=== PATIENT | female | born 1940 | race Caucasian/White ===

== ENCOUNTER → 2016-05-08 | Outpatient (CLI) | payer MEDICARE ==
[~2016-05-08] MED LIST: AMLO2.5T PO; DOCU-27 PO; HYDR500C PO; LEVE250T30 PO; MECL12.5 PO; MULT1TAB52 PO; TIZA4TAB PO
--- NOTE | 2016-05-08 14:24 | KCIC ---
PROCEDURE Two-view chest HISTORY Pneumonia COMPARISON April 24, 2016 FINDINGS Two views of the chest are submitted. There is no dependent pleural fluid or pneumothorax. Heart size is within normal limits. There is atherosclerotic calcification near aortic arch. There is no lobar consolidation. There is mild linear opacity at the right lung base more likely due to mild atelectasis or fibrotic change, similar in appearance. IMPRESSION No acute abnormality is identified by radiographs. Electronically signed by: Bud Joseph MD (May 08, 2016 14:23:35)
== END | disposition home or self-care (01) ==
LOC: KCIC 12:05
PROVIDERS: ATTEND Family Medicine
DX: J18.9 Pneumonia, unspecified organism (principal)
CPT/HCPCS: 71020

== ENCOUNTER → 2016-07-10 | Outpatient (CLI) | payer MEDICARE ==
--- NOTE | 2016-07-10 10:21 | KCIC ---
PROCEDURE Lumbar spine radiographs, right hip radiographs. HISTORY Right hip pain for 2-3 months, chronic low back pain COMPARISON There are no previous similar exams available. FINDINGS Lumbar spine: 7 views of the lumbar spine are submitted. There is moderate to severe S-shaped scoliosis of the lumbar spine. Pars interarticularis are poorly evaluated due to scoliosis. There is advanced degenerative disc disease L1-2, L4-5, and L5-S1 at which there is vacuum disc disease. There is multilevel lumbar spondylosis and facet degenerative change. Lumbar vertebral body stature is overall preserved. There is minimal posterior subluxation L3 relative to L4 very slightly reduced with flexion. Very minimal posterior subluxation L2 relative to L3 reduces with flexion. There is mild right lateral subluxation L1 relative to L2 and to a greater degree of L2 relative to L3. There is mild left lateral subluxation of L4 relative to L5. There is atherosclerotic calcification of the abdominal aorta. Right hip radiographs: Two views of the right hip are submitted. No acute fracture or dislocation is identified. Right hip joint space is minimally narrowed. Right femoral head morphology is maintained. IMPRESSION 1. There is moderate to severe S-shaped scoliosis of the lumbar spine. There is multilevel lumbar degenerative disc disease and spondylosis greatest L1-2, L4-5, and L5-S1. There is multilevel abnormal alignment as stated. There is multilevel lumbar facet degenerative change. 2. No acute abnormality is identified of the right hip. Electronically signed by: Bud Joseph MD (Jul 10, 2016 10:20:11)
== END | disposition home or self-care (01) ==
LOC: KCIC 09:16
PROVIDERS: ATTEND Family Medicine
DX: M47.896 Other spondylosis, lumbar region (principal); M54.5 Low back pain; M41.86 Other forms of scoliosis, lumbar region; M51.37 Other intervertebral disc degeneration, lumbosacral region; M43.5X6 Other recurrent vertebral dislocation, lumbar region; I70.0 Atherosclerosis of aorta
CPT/HCPCS: 72114; 73502

== ENCOUNTER → 2016-10-13 | Outpatient (CLI) | payer MEDICARE ==
[~2016-10-13] MED LIST changes: +DOCU-109 PO; -DOCU-27 PO
--- NOTE | 2016-10-13 14:33 | KCIC ---
MRI Lumbar Spine without contrast History: Low back pain, right radiculopathy, right leg weakness, symptoms for about one year, history of scoliosis Technique: Multiplanar, multi sequential noncontrast MR imaging was performed of the lumbar spine. Contrast: None Comparison: None Findings: There is moderate to severe levoscoliosis centered about L4. There is right lateral subluxation L2 relative to L3 and left lateral subluxation of L4 relative to L5. Lumbar vertebral body stature is maintained. There is mild grade 1 anterior spondylolisthesis at L4-5 eccentric to the right. There is minimal posterior subluxation L2 relative to L3 more eccentric to the right. Conus terminates at T12. There is multilevel variable moderate to severe degenerative disc disease throughout the lumbar spine, greatest at site of anticipated increased axial weightbearing due to scoliosis. There are T2 hyperintense foci of the bilateral renal pelves, also in the parenchyma, overall compatible with cysts. T11-12: This level was not included on the axial images. There is a posterior protrusion, likely mild spinal stenosis. T12-L1: There is broad posterior bulge greater in the left lateral recess. There is mild facet degenerative change. There is mild narrowing of the far left lateral recess. There is mild narrowing of the left neural foramen, right neural foramen adequate. L1-L2: There is posterior disc osteophyte complex and superimposed broad bulge. There is mild buckling of the ligamentum flavum and facet hypertrophic change. There is moderate narrowing of the left lateral recess, mild narrowing of the right lateral recess. There is moderate to severe narrowing of the left neural foramen by disc osteophyte complex, contact of the extraforaminal left L1 nerve root by disc osteophyte complex. There is mild narrowing of the right neural foramen. L2-L3: There is disc osteophyte complex and superimposed broad posterior protrusion. There is fairly severe right and moderate left facet degenerative change. There is [id number] buckling of the ligamentum flavum. There is moderate to severe narrowing of the lateral recesses bilaterally, also deformity of the central canal due to scoliosis and right facet hypertrophic change with overall mild narrowing. There is moderate narrowing greater distally of the left neural foramen, contact of the undersurface of the exiting left L2 nerve root by disc osteophyte complex and protrusion, also likely contacted laterally by uncovering of the left lateral aspect of the disc due to right lateral subluxation of L2. There is moderate to severe narrowing of the right neural foramen. L3-L4: There is moderate to severe facet degenerative change greater on the right. There is mild/moderate buckling of the ligamentum flavum. There is moderate to severe right and moderate left lateral recess stenosis, mild to moderate narrowing of the central canal. There is [id number] left and moderate to severe right neural foramina compromise. L4-L5: There is severe facet hypertrophic change greater on the right. There is mild buckling of the ligamentum flavum. There is minimal disc osteophyte complex, partial uncovering of the posterior aspect of the disc on the right due to anterior spondylolisthesis with superimposed disc osteophyte complex and bulge. Combination of findings results in severe spinal stenosis, effacement of subarachnoid space. There is lateral recess stenosis bilaterally with impingement of the descending L5 nerve roots somewhat greater on the right. There is fairly severe right and moderate left neural foramina compromise. L5-S1: There is moderate facet hypertrophic change greater on the left. There is mild buckling of the ligamentum flavum greater on the left. There is shallow protrusion greater in the left lateral recess. There is moderate left lateral recess stenosis, impingement descending left S1 nerve root. There is fairly severe narrowing of the left neural foramen primarily from facet although also disc osteophyte complex, minimal narrowing on the right. Impression: 1. There is severe spinal stenosis at L4-5, lateral recess stenosis bilaterally with impingement of the descending L5 nerve roots somewhat greater on the right. There is also right greater than left lateral recess stenosis at L3-4 and bilaterally at L2-3 and to a somewhat lesser degree on the left at L5-S1 and L1-2. 2. There is moderate to severe lumbar levoscoliosis. There is abnormal alignment as stated. There is multilevel facet degenerative change. 3. There is multilevel lumbar neural foramina compromise including more significant narrowing on the left at L5-S1 and L1-2, right greater than left at L4-5 and L2-3, and on the right at L3-4. 4. There is multilevel variable moderate to severe degenerative disc disease throughout the lumbar spine. 5. There are likely cysts of the bilateral kidneys including of the renal pelves. Electronically signed by: Denys Joseph MD (10/13/2016 2:29 PM)
== END | disposition home or self-care (01) ==
LOC: KCIC MRI 12:56
PROVIDERS: ATTEND Family Medicine
DX: M51.36 Other intervertebral disc degeneration, lumbar region (principal); M48.06 Spinal stenosis, lumbar region; M25.78 Osteophyte, vertebrae; M43.16 Spondylolisthesis, lumbar region; M54.5 Low back pain; M54.16 Radiculopathy, lumbar region; R53.1 Weakness
CPT/HCPCS: 72148

== ENCOUNTER → 2016-11-09 | Outpatient (CLI) | payer MEDICARE ==
[~2016-11-09] MED LIST changes: +ASCO10002 PO; +CA C1TAB36 PO; +CHOL10003 PO; +FLAX10003 PO; +GINK120C PO; +GLUC100018 PO; +IOHEXOL 180 MG/ML 10 ML VIAL. ONE; +NAPR500T3 PO; +TRAM50TA PO; +VITA1CAP PO; +VITA400C6 PO; +methylPREDNISolone ACETATE 40 MG/ML VIAL. ONE; +methylPREDNISolone ACETATE 80 MG/ML VIAL. ONE
== END | disposition home or self-care (01) ==
LOC: PNCL 08:09
PROVIDERS: ATTEND Anesthesiology
DX: M51.16 Intervertebral disc disorders with radiculopathy, lumbar region (principal); M48.01 Spinal stenosis, occipito-atlanto-axial region; Z86.69 Personal history of other diseases of the nervous system and sense organs
CPT/HCPCS: 62323; J1030; J1040

== ENCOUNTER → 2016-12-08 | Outpatient (CLI) | payer MEDICARE ==
--- NOTE | 2016-12-08 12:58 | PAIN ---
DATE OF SERVICE: 12/08/2016 PROGRESS NOTE FOR PAIN CLINIC DIAGNOSES: Lumbar radiculopathy with lumbar degenerative disk disease and lumbar spinal stenosis. HISTORY OF PRESENT ILLNESS: The patient is a 76-year-old female who returns for followup status post lumbar epidural steroid injection x 1. The patient reports about 95% improvement until about a week ago, when the pain returned in her low back and slightly more on the right side than the left in the lower extremities, mostly in the posterior gluteus, posterior thigh. The patient reports that she had been on a trip to [place] before that and did very well right after the last shot, was increasing her activity with greater ease and comfort, was performing all of her activities and recreation without difficulty and with only minimal pain. The patient reports pain is returning now, at worse it is 6 on a scale of 10, at least it is of 2 and averages about at 3 on a scale of 10. The patient reports it is aching and tight with some shooting pain in the right lower extremity as noted. The patient reports no new motor or sensory deficits, no new bowel or bladder incontinence. The patient reports it does not awaken her from sleep at night. She feels much better with lying down or sitting down. It only bothers her when she is on her feet for more than about 30 minutes. PHYSICAL EXAMINATION: VITAL SIGNS: Today, the patient's blood pressure is 133/64, pulse 84, respirations 18, temperature 98.1 degrees Fahrenheit. Height is 5 feet 5 inches, weighs 143 pounds. GENERAL: The patient is awake, alert, oriented, appropriate, very pleasant demeanor. HEENT: Head shows normocephalic, atraumatic. Extraocular movements are intact and symmetrical. Oral cavity, mucous membranes are moist and pink. Dentition is intact. NECK: Shows anterior throat supple without palpable lymphadenopathy noted. Swallow reflex is symmetrical. CHEST: Shows normal on inspection. Breath sounds are clear to auscultation bilaterally. HEART: Shows S1 and S2 clear. ABDOMEN: Soft, nontender, nondistended. No palpable organomegaly is noted. BACK: Shows spine grossly midline. Normal appearing thoracic kyphosis and lumbar lordotic curvature and lumbar paraspinous musculature shows some moderate tenderness to palpation, but only diffusely bilaterally. The patient has good rotational motion both laterally as well as extension and flexion of lumbar spine without difficulty. No tenderness over the spinous processes, sacrum or sacroiliac regions. EXTREMITIES: Lower extremities showed deep tendon reflexes 1+ in the patellar and tendo calcaneus tendons are equal. Motor exam is approximately 5 on a scale of 5 with dorsiflexion, extension, quadriceps and hamstring flexion. Pulses are 2+ bilaterally with no edema. Options were discussed with the patient and the patient's old chart was reviewed as her current medication regimen updated. Current review of systems updated today as well. We will proceed with a second lumbar epidural steroid injection with fluoroscopic guidance. Risks were again discussed including, but not limited to bleeding, infection, possibility of epidural hematoma, subsequent neurologic compromise, dural puncture, headaches, spinal cord and/or nerve damage, side effects of steroid medication and poor results regarding pain control. The patient understands and wishes to proceed. The patient will return to the clinic in approximately 2 weeks for followup, was counseled on return appointment, activity level and side effects to be aware of. DIAGNOSES: Lumbar radiculopathy with lumbar spinal stenosis and lumbar degenerative disk disease. PROCEDURES: Lumbar epidural steroid injection in translaminar approach at the L5-S1 level using C-arm fluoroscopic guidance under sterile prep and drape, using local anesthetic. MEDICATIONS INJECTED: A total of 120 mg Depo-Medrol plus 10 mL preservative-free normal saline and 2 mL of Isovue for contrast. CONDITION AT DISCHARGE: Stable. The patient tolerated procedure well, had no complications. ISAAC MACIAS MD DR: MERY/estefani JOB#: [id number] / [id number]
== END | disposition home or self-care (01) ==
LOC: PNCL 08:51
PROVIDERS: ATTEND Anesthesiology
DX: M51.16 Intervertebral disc disorders with radiculopathy, lumbar region (principal); M48.06 Spinal stenosis, lumbar region; Z86.69 Personal history of other diseases of the nervous system and sense organs
CPT/HCPCS: 62323; J1030; J1040

== ENCOUNTER → 2017-02-02 | Outpatient (CLI) | payer MEDICARE ==
[~2017-02-02] MED LIST changes: +ASPI-482 PO; +NAPR220C4 PO; -NAPR500T3 PO; +NAPR500T4 PO
--- NOTE | 2017-02-02 10:46 | PAIN ---
DATE OF SERVICE: 02/02/2017 DIAGNOSES: Lumbar radiculopathy with lumbar degenerative disk disease, lumbar spinal stenosis. HISTORY OF PRESENT ILLNESS: The patient is a 76-year-old female who returns for followup status post lumbar epidural steroid injections x 2, last seen on 12/08/2016, the patient did very well about 90% improvement after the last injection. The patient reports the pain is returning now over the past few weeks about 3-4 weeks, increase in the low back and right lower extremity, mostly in the posterior lateral thigh on the right into the posterior lower leg. The patient reports it as shooting, cramping, stabbing, worse with standing, walking, changing positions, better at night, but awakens her from sleep occasionally. She repositions or takes a sleeping pill, which helps as well. The patient reports no new motor or sensory deficits, no significant left-sided symptoms, reports no other complaints. PHYSICAL EXAMINATION: VITAL SIGNS: The patient's blood pressure 129/68, pulse 85, respirations 16, temperature 98.0 degrees Fahrenheit. Height is 5 feet 5 inches and weight is 149 pounds. GENERAL: The patient is awake, alert, oriented, appropriate, very pleasant demeanor. HEENT: Head shows normocephalic, atraumatic. Extraocular movements are intact, symmetrical. Oral cavity: Mucous membranes moist and pink. Dentition is intact. NECK: Shows anterior throat supple without palpable lymphadenopathy noted. Swallow reflex is symmetrical. CHEST: Shows normal with inspection. Breath sounds clear to auscultation bilaterally. HEART: Shows S1 and S2 clear. ABDOMEN: Soft, nontender, nondistended. No palpable organomegaly is noted. No rebound or guarding demonstrated. BACK: Shows spine grossly midline. Lumbar paraspinous musculature shows some moderate tenderness with palpation diffusely throughout the upper, middle and lower distribution bilaterally, but without asymmetry. The patient shows no tenderness over the sacrum or sacroiliac regions. EXTREMITIES: Lower extremities showed deep tendon reflexes at 1+ in the patellar and tendo calcaneus tendons are equal. Motor exam is strong with 5/5 dorsiflexion, extension, quadriceps and hamstring flexion and equal. Peripheral pulses are 1+ posterior tibial. No peripheral edema is noted. Options were discussed with the patient. The patient's old chart was reviewed as her current medication regimen updated. Current review of systems updated today as well. We will proceed with the third in the series of lumbar epidural steroid injection with fluoroscopic guidance. Risks were again discussed including, but not limited to bleeding, infection, possibility of epidural hematoma, subsequent neurologic compromise, dural puncture, headaches, spinal cord and/or nerve damage, side effects of steroid medication and poor results regarding pain control. The patient understands and wishes to proceed. The patient will return to clinic in approximately 2 weeks for followup, was counseled on return appointment, activity level and side effects to be aware of. DIAGNOSES: Lumbar radiculopathy with lumbar degenerative disk disease, lumbar spinal stenosis. PROCEDURE: Lumbar epidural steroid injection in translaminar approach L5-S1 level using C-arm fluoroscopic guidance under sterile prep and drape using local anesthetic. Medications injected total of 120 mg Depo-Medrol plus 10 mL preservative-free normal saline and 2 mL of Isovue for contrast. CONDITION AT DISCHARGE: Stable. The patient tolerated procedure well, had no complications. ISAAC MACIAS MD DR: MERY/estefani JOB#: [id number] / [id number]
== END | disposition home or self-care (01) ==
LOC: PNCL 08:43
PROVIDERS: ATTEND Anesthesiology
DX: M51.16 Intervertebral disc disorders with radiculopathy, lumbar region (principal); Z86.69 Personal history of other diseases of the nervous system and sense organs
CPT/HCPCS: 62323; J1030; J1040

== ENCOUNTER → 2017-05-04 | Outpatient (CLI) | payer MEDICARE ==
[~2017-05-04] MED LIST changes: -AMLO2.5T PO; -ASCO10002 PO; -ASPI-482 PO; -CA C1TAB36 PO; -CHOL10003 PO; -DOCU-109 PO; -FLAX10003 PO; -GINK120C PO; -GLUC100018 PO; -HYDR500C PO; +IOHEXOL 180 MG/ML 10 ML VIAL.; -IOHEXOL 180 MG/ML 10 ML VIAL. ONE; -LEVE250T30 PO; -MECL12.5 PO; -MULT1TAB52 PO; -NAPR220C4 PO; -NAPR500T4 PO; -TIZA4TAB PO; -TRAM50TA PO; -VITA1CAP PO; -VITA400C6 PO; +methylPREDNISolone ACETATE 40 MG/ML VIAL.; -methylPREDNISolone ACETATE 40 MG/ML VIAL. ONE; +methylPREDNISolone ACETATE 80 MG/ML VIAL.; -methylPREDNISolone ACETATE 80 MG/ML VIAL. ONE
== END ==
LOC: PNCL 08:01
DX: M51.36 Other intervertebral disc degeneration, lumbar region (principal); M48.061 Spinal stenosis, lumbar region without neurogenic claudication; Z98.890 Other specified postprocedural states; Z79.82 Long term (current) use of aspirin; Z79.899 Other long term (current) drug therapy
CPT/HCPCS: 62323; J1030; J1040

== ENCOUNTER 2017-06-01 17:03 | Emergency (ER) | payer MEDICARE ==
[2017-06-01 17:49] LABS: BILIRUBIN,URINE NEGATIVE (NEG); CLARITY,URINE CLEAR; COLOR,URINE YELLOW; GLUCOSE,URINE NEGATIVE (NEG); NITRITE,URINE NEGATIVE (NEG); PH,URINE 6.5; PROTEIN,URINE 100 mg/dL (NEG-TRACE); UROBILINOGEN,URINE 0.2 mg/dL (0.2 mg/dL)
[2017-06-01] MEDS: ONDANSETRON PF 4 MG/2 ML VIAL. IV ×2 (17:49)
[2017-06-01] MEDS: IV NORMAL SALINE 1000ML BAG 1,000 ML IV ×2 (17:50)
[2017-06-01 17:56] LABS: ADD MAN DIFF? NO
[2017-06-01 17:59] LABS: BASO % 0 % (0-3); EOS % 0 % (0-3); HEMATOCRIT 41.4 % (36.0-47.0); HEMOGLOBIN 14.3 g/dL (12.0-15.5); LYMPH # 1.3 x10^3/uL (1.0-4.8); LYMPH % 23 % (24-48); MEAN CORPUSCULAR HEMOGLOBIN 34 pg (25-35); MEAN CORPUSCULAR HGB CONC 35 g/dL (31-37); MEAN CORPUSCULAR VOLUME 100 fL (79-100); MONO # 0.2 x10^3/uL (0.0-1.1); MONO % 4 % (0-9); NEUT % 73 % (31-73); PLATELET COUNT 171 x10^3/uL (140-400); RED BLOOD COUNT 4.16 x10^6/uL (3.50-5.40); RED CELL DISTRIBUTION WIDTH 13.6 % (11.5-14.5); WHITE BLOOD COUNT 5.5 x10^3/uL (4.0-11.0)
[2017-06-01 18:07] LABS: BACTERIA,URINE FEW /HPF (0-FEW); RBC,URINE RARE /HPF (0-2); SQUAMOUS EPITHELIAL CELL,UR MOD /LPF; WBC,URINE OCC /HPF (0-4)
[2017-06-01 18:12] LABS: ANION GAP 13 (6-14); BLOOD UREA NITROGEN 20 mg/dL (7-20); BUN/CREATININE RATIO 33 (6-20); CALCIUM 9.4 mg/dL (8.5-10.1); CARBON DIOXIDE 25 mmol/L (21-32); CHLORIDE 100 mmol/L (98-107); CREATININE 0.6 mg/dL (0.6-1.0); GFR 97.2; GLUCOSE 196 mg/dL (70-99); POTASSIUM 4.4 mmol/L (3.5-5.1); SODIUM 138 mmol/L (136-145)
[2017-06-01 18:19] LABS: ALBUMIN/GLOBULIN RATIO 1.6 (1.0-1.7); ALK PHOS 81 U/L (46-116); ALT (SGPT) 20 U/L (14-59); AST (SGOT) 20 U/L (15-37); LIPASE 75 U/L (73-393); TOTAL PROTEIN 6.5 g/dL (6.4-8.2)
[2017-06-01] MEDS: IOHEXOL 300 MG/ML 100ML VIAL. IV ×2 (18:22)
[2017-06-01] MEDS ORDERED: CONTRAST GIVEN MC ×2 (18:30)
[2017-06-01] MEDS ORDERED: IV NORMAL SALINE 1000ML BAG 1,000 ML IV ×2 (19:15)
== END 2017-06-01 19:45 | disposition home or self-care (01) ==
LOC: ER 17:03
DX: K57.30 Diverticulosis of large intestine without perforation or abscess without bleeding (principal); K80.80 Other cholelithiasis without obstruction; K44.9 Diaphragmatic hernia without obstruction or gangrene; E86.0 Dehydration; B34.9 Viral infection, unspecified; R16.0 Hepatomegaly, not elsewhere classified; R19.00 Intra-abdominal and pelvic swelling, mass and lump, unspecified site; Z90.710 Acquired absence of both cervix and uterus; Z90.49 Acquired absence of other specified parts of digestive tract; Z98.890 Other specified postprocedural states
CPT/HCPCS: 36415; 74177; 80053; 81001; 83690; 85025; 93005; 96361; 96374; 99285-25; J2405; J7030; Q9967

== ENCOUNTER → 2017-07-27 | Outpatient (CLI) | payer MEDICARE | END | disposition home or self-care (01) | LOC: PNCL 08:20 | DX: M51.16 Intervertebral disc disorders with radiculopathy, lumbar region (principal); M48.061 Spinal stenosis, lumbar region without neurogenic claudication; I10 Essential (primary) hypertension | CPT/HCPCS: 62323; J1030; J1040; Q9965 ==

== ENCOUNTER → 2017-10-19 | Outpatient (CLI) | payer MEDICARE ==
[~2017-10-19] MED LIST changes: +LIDOCAINE 1% PF 2 ML VIAL.
== END ==
LOC: PNCL 11:27
DX: M51.16 Intervertebral disc disorders with radiculopathy, lumbar region (principal); M48.061 Spinal stenosis, lumbar region without neurogenic claudication; I10 Essential (primary) hypertension; Z79.82 Long term (current) use of aspirin; Z98.890 Other specified postprocedural states
CPT/HCPCS: 62323; J1030; J1040; Q9965

== ENCOUNTER → 2018-01-10 | Outpatient (CLI) | payer MEDICARE ==
[2017-06-01 18:44] VITALS: BP 126/64
[~2018-01-10] MED LIST changes: +AMLO2.5T3 PO; +ASCO10002 PO; +ASPI-482 PO; +CA C1TAB36 PO; +CHOL10003 PO; +DOCU-109 PO; +FLAX10003 PO; +GINK120C PO; +GLUC100018 PO; +HYDR500C PO; -IOHEXOL 180 MG/ML 10 ML VIAL.; +IOHEXOL 180 MG/ML 10 ML VIAL. ONE; +LEVE250T30 PO; -LIDOCAINE 1% PF 2 ML VIAL.; +LIDOCAINE 2% PF 2ML VIAL. ONE; +MECL12.5 PO; +MULT1TAB52 PO; +NAPR-514 PO; +NAPR220C4 PO; +ONDA4TAB10 SL; +TIZA4TAB PO; +TRAM50TA PO; +VITA1CAP PO; +VITA400C6 PO; -methylPREDNISolone ACETATE 40 MG/ML VIAL.; +methylPREDNISolone ACETATE 40 MG/ML VIAL. ONE; -methylPREDNISolone ACETATE 80 MG/ML VIAL.; +methylPREDNISolone ACETATE 80 MG/ML VIAL. ONE
--- NOTE | 2018-01-10 10:08 | PAIN ---
DATE OF SERVICE: 01/10/2018 PROGRESS NOTE FOR PAIN CLINIC DIAGNOSES: Lumbar radiculopathy with lumbar degenerative disk disease and lumbar spinal stenosis. HISTORY OF PRESENT ILLNESS: The patient is a 77-year-old female who returns for followup status post lumbar epidural steroid injections x 2, last seen on 10/19/2017. The patient did very well, about 80% improvement for about 2 months after the injection. The patient reports she has been having some pain increased now over the past few weeks in the low back and mainly in the right lower extremity, posterior gluteus, posterior thigh, posterior calf, some in the anterior aspect as well in the hip as well as across the low back into the left leg as well posteriorly. The patient reports it is stabbing, aching, sharp, sometimes dull and radiating. The patient reports it is a 9-10 scale of 10 at its worst, 7-8 on average and 4 at its least and is a 7 today. The patient reports it is worse with walking, standing and changing in positions. She started a new physical therapy program, which she feels is helping thus far. The patient reports no new motor or sensory deficits and no new bowel or bladder incontinence. It awakens her from sleep occasionally but not every night. PHYSICAL EXAMINATION: VITAL SIGNS: The patient's blood pressure is 136/66, pulse 67, respirations 18, temperature 98.0 degrees Fahrenheit and weight is 144 pounds. GENERAL: The patient is awake, alert, oriented, appropriate and very pleasant demeanor. HEENT: Head shows normocephalic and atraumatic. Extraocular movements are intact and symmetrical. Oral cavity, mucous membranes are moist and pink. Dentition is intact. NECK: Shows anterior throat supple without palpable lymphadenopathy noted. Swallow reflex symmetrical. CHEST: Shows normal on inspection. Breath sounds clear to auscultation bilaterally. HEART: Shows S1 and S2 clear. No murmurs auscultated. ABDOMEN: Soft, nontender and nondistended. No palpable organomegaly is noted. No rebound or guarding demonstrated. BACK: Shows spine grossly in the midline. Normal appearing thoracic kyphosis and lumbar lordotic curvature is slightly flattened. Lumbar paraspinous muscles are symmetrical on inspection, on palpation shows some mild tenderness but only diffusely in the low lumbar distribution bilaterally without radiation. EXTREMITIES: The patient's lower extremities show deep tendon reflexes at 1+ in the patellar and tendo-calcaneus tendons are equal. Motor exam is strong with 5/5 dorsiflexion and extension. Peripheral pulses are 1+ posterior tibia. No peripheral edema is noted bilaterally. Options were discussed with the patient. The patient's old chart was reviewed as well as her current medication regimen updated. Current review of systems updated today as well. We will proceed with a third in the series of lumbar epidural steroid injection today with fluoroscopic guidance. Risks were again discussed including, but not limited to bleeding, infection, possibility of epidural hematoma, subsequent neurologic compromise, dural puncture, headaches, spinal cord and/or nerve damage, side effects of steroid medication and poor results regarding pain control. The patient understands and wished to proceed. The patient will return to the clinic in approximately 2 weeks for followup, was counseled as to return appointment, activity level and side effects to be aware of. DIAGNOSES: Lumbar radiculopathy with lumbar degenerative disk disease and lumbar spinal stenosis. PROCEDURE: Lumbar epidural steroid injection, translaminar approach at the L5-S1 level using C-arm fluoroscopic guidance under sterile prep and drape using local anesthetic. MEDICATION INJECTED: A total of 120 mg Depo-Medrol plus 10 mL of preservative-free normal saline and 2 mL of Isovue for contrast. CONDITION AT DISCHARGE: Stable. The patient tolerated the procedure well and had no complications. ISAAC MACIAS MD DR: MERY/estefani JOB#: [id number] / [id number]
== END | disposition home or self-care (01) ==
LOC: PNCL 08:00
PROVIDERS: ATTEND Anesthesiology
DX: M51.16 Intervertebral disc disorders with radiculopathy, lumbar region (principal); M48.061 Spinal stenosis, lumbar region without neurogenic claudication
CPT/HCPCS: 62323; J1030; J1040; J2001; Q9965

== ENCOUNTER → 2018-03-24 | Outpatient (CLI) | payer MEDICARE ==
[2017-06-01 18:44] VITALS: BP 126/64
[~2018-03-24] MED LIST changes: -LIDOCAINE 2% PF 2ML VIAL. ONE
--- NOTE | 2018-03-24 11:47 | PAIN ---
DATE OF SERVICE: 03/24/2018 DIAGNOSES: Lumbar radiculopathy with lumbar degenerative disk disease and lumbar spinal stenosis. HISTORY OF PRESENT ILLNESS: The patient is a 78-year-old female who returns for followup status post lumbar epidural steroid injections, last seen on 01/10. The patient did very well with about 95% improvement after last injection. The patient reports the pain is returning now in the low back and right lower extremity. She has recently been through a physical therapy program, which she reports was not very helpful for her pain in her back and her leg. She would like to have this looked at again. The patient reports it is in the low back, right lower extremity, posterior gluteus, posterior thigh, posterior calf, stabbing, aching, severe, becoming more a dull and tight across the back, rated a 10 on a scale of 10 at its worst, 9 on average, 6 at its least and is an 8 today. The patient reports it wakes her from sleep occasionally, but not every night, most nights she sleeps fairly well. She feels better with sitting down or lying down, worse with standing and walking. She was shoveling some snow a few days ago, which exacerbated the pain as well. The patient reports no new motor or sensory deficits, no new bowel or bladder incontinence or other complaints. PHYSICAL EXAMINATION: VITAL SIGNS: The patient's blood pressure 141/69, pulse 74, respirations 18, temperature 98.2 degrees Fahrenheit, height is 5 feet 5 inches, weight 145 pounds. GENERAL: The patient is awake, alert, oriented, appropriate, very pleasant demeanor. HEENT: Head is normocephalic, atraumatic. Extraocular movements are intact and symmetrical. Oral cavity: Mucous membranes moist and pink. Dentition is intact. NECK: Shows anterior throat supple without palpable lymphadenopathy noted. Swallow reflex symmetrical. CHEST: Shows normal with inspection. Breath sounds clear to auscultation bilaterally. HEART: Shows S1, S2 clear. No murmurs auscultated. ABDOMEN: Soft, nontender, nondistended. No palpable organomegaly is noted. No rebound or guarding demonstrated. BACK: Shows spine grossly in the midline. Slight exaggeration of thoracic kyphosis, some minor flattening of lumbar lordotic curvature with some rightward scoliosis noted. Lumbar paraspinous muscle shows moderately symmetrical with palpation shows moderate tenderness bilaterally diffusely, mostly in the low lumbar distribution without radiation. The patient has good rotational motion of lumbar spine, both laterally as well as extension and flexion without difficulty. EXTREMITIES: The patient's lower extremities show deep tendon reflexes 1+ in the patellar and tendo calcaneus tendons are equal. Motor exam is strong with 5/5 dorsiflexion, extension, quadriceps and hamstring flexion and intact. Peripheral pulses are 1+ posterior tibia. No peripheral edema is noted bilaterally. Options were discussed with the patient. The patient's old chart was reviewed as her current medication regimen updated. Current review of systems updated today as well. We will proceed with a lumbar epidural steroid injection today with fluoroscopic guidance. Risks were again discussed including, but not limited to bleeding, infection, possibility of epidural hematoma and subsequent neurological compromise, dural puncture, headaches, spinal cord and/or nerve damage, side effects of steroid medication and poor results regarding pain control. The patient understands and wished to proceed. The patient to return to clinic in approximately 2 weeks for followup, was counseled on return appointment, activity level and side effects to be aware of. DIAGNOSES: Lumbar radiculopathy with lumbar spinal stenosis, lumbar degenerative disk disease. PROCEDURE: Lumbar epidural steroid injection, translaminar approach at L5-S1 level using C-arm fluoroscopic guidance under sterile prep and drape using local anesthetic. MEDICATION INJECTED: A total of 120 mg Depo-Medrol, plus 10 mL of preservative-free normal saline and 2 mL of Isovue for contrast. CONDITION AT DISCHARGE: Stable. The patient tolerated the procedure well, had no complications. ISAAC MACIAS MD DR: MERY/estefani JOB#: [id number] / [id number]
== END | disposition home or self-care (01) ==
LOC: PNCL 07:44
PROVIDERS: ATTEND Anesthesiology
DX: M51.16 Intervertebral disc disorders with radiculopathy, lumbar region (principal); M48.061 Spinal stenosis, lumbar region without neurogenic claudication; Z79.899 Other long term (current) drug therapy; Z79.82 Long term (current) use of aspirin
CPT/HCPCS: 62323; J1030; J1040; Q9965

== ENCOUNTER → 2018-05-10 | Outpatient (CLI) | payer MEDICARE, OTHER ==
[2017-06-01 18:44] VITALS: BP 126/64
[~2018-05-10] MED LIST changes: -AMLO2.5T3 PO; +AMLO2.5T5 PO; -TIZA4TAB PO; +TIZA4TAB2 PO
--- NOTE | 2018-05-10 10:13 | PAIN ---
DATE OF SERVICE: 05/10/2018 PROGRESS NOTE FOR PAIN CLINIC DIAGNOSES: Lumbar radiculopathy with lumbar spinal stenosis and lumbar degenerative disk disease. HISTORY OF PRESENT ILLNESS: The patient is a 78-year-old female who returns for followup status post lumbar epidural steroid injection x 1 on 03/24/2018. The patient did very well, with about 70% improvement for about 5-6 weeks. The patient reports the pain is beginning to return now in the low back and right lower extremity, posterior gluteus, posterior thigh, posterior calf and lateral thigh and calf on the right. Only worse with walking and standing. The patient reports it is aching and dull. It is shooting and radiating, becoming more constant and more noticeable. The patient reports that it does not awaken her from sleep frequently, but some nights it will. The patient reports it is a 10 on a scale of 10 at its worst, 9 on average and a 5 at its least and is a 5 today. The patient reports it is worse with walking, standing, changing any positions or sitting for a prolonged period. The patient reports initially she was walking greater distances, doing activities at home with greater ease and comfort as well as traveling with greater ease. No new motor or sensory deficits. No bowel or bladder incontinence. PHYSICAL EXAMINATION: VITAL SIGNS: Today, the patient's blood pressure 133/78, pulse 85, respirations 18 and temperature is 97.6 degrees Fahrenheit. Height is 5 feet 5 inches, weighs 144 pounds. GENERAL: The patient is awake, alert, oriented, appropriate, very pleasant demeanor. HEENT EXAMINATION: Shows normocephalic, atraumatic. Extraocular movements are intact and symmetrical. Oral cavity, mucous membranes are moist and pink. Dentition is intact. NECK: Shows anterior throat supple, without palpable lymphadenopathy noted. Swallow reflex is symmetrical. CHEST: Shows normal on inspection. Breath sounds are clear to auscultation bilaterally. HEART: Shows S1, S2 clear. No murmurs auscultated. ABDOMEN: Soft, nontender and nondistended. No palpable organomegaly is noted. No rebound or guarding demonstrated. BACK: Shows spine grossly in the midline. Slight exaggeration of the thoracic kyphosis and minor flattening of the lumbar lordotic curvature. Lumbar paraspinous muscle shows symmetrical on inspection. On palpation, it shows some mild tenderness, but only diffusely in the low lumbar distribution, without radiation. EXTREMITIES: The patient's lower extremities show deep tendon reflexes at 1+ in the patella and tendo calcaneus tendons are equal. Motor exam is strong with 5/5 dorsiflexion, extension, quadriceps and hamstring flexion equal. Peripheral pulses are 1+ posterior tibia. No peripheral edema is noted bilaterally. Options were discussed with the patient. The patient's old chart was reviewed as was her current medication regimen updated. Current review of systems updated today as well. We will proceed with a second in the series of lumbar epidural steroid injection today with fluoroscopic guidance. Risks were again discussed including, but not limited to bleeding, infection, possibility of epidural hematoma, subsequent neurological compromise, dural puncture, headaches, spinal cord and/or nerve damage, side effects of steroid medication and poor results regarding pain control. The patient understands and wished to proceed. The patient will return to the clinic in approximately 2 weeks for followup. She was counseled to her return appointment, activity level and side effects to be aware of. DIAGNOSES: Lumbar radiculopathy with lumbar spinal stenosis and lumbar degenerative disk disease. PROCEDURE: Lumbar epidural steroid injection in translaminar approach at L5-S1 level using C-arm fluoroscopic guidance under sterile prep and drape using local anesthetic. MEDICATIONS INJECTED: A total of 120 mg Depo-Medrol plus 10 mL of preservative-free normal saline and 2 mL of Isovue for contrast. CONDITION AT DISCHARGE: Stable. The patient tolerated the procedure well, had no complications. ISAAC MACIAS MD DR: MERY/estefani JOB#: [id number] / [id number]
== END | disposition home or self-care (01) ==
LOC: PNCL 07:31
PROVIDERS: ATTEND Anesthesiology
DX: M51.16 Intervertebral disc disorders with radiculopathy, lumbar region (principal); M48.061 Spinal stenosis, lumbar region without neurogenic claudication
CPT/HCPCS: 62323; J1030; J1040; Q9965

== ENCOUNTER → 2018-08-04 | Outpatient (CLI) | payer MEDICARE, OTHER ==
[2017-06-01 18:44] VITALS: BP 126/64
[~2018-08-04] MED LIST changes: +TIZA4TAB PO; -TIZA4TAB2 PO
--- NOTE | 2018-08-05 01:42 | PAIN ---
DATE OF SERVICE: 08/04/2018 PROGRESS NOTE FOR PAIN CLINIC DIAGNOSES: Lumbar radiculopathy with lumbar spinal stenosis and lumbar degenerative disk disease. HISTORY OF PRESENT ILLNESS: The patient is a 78-year-old female who returns for followup status post lumbar epidural steroid injection x 2, last seen 05/10/2018. The patient reports she did very well with about 80% improvement. Pain is returning now in the low back and right lower extremity. The patient was initially walking greater distances, travelling with greater ease, working, doing home activities as well as travelling. The patient reports she is sleeping well and continues to sleep well at night. It does not awaken her from sleep frequently, but occasionally. The patient reports no new motor or sensory deficits. She reports the pain returning now over the past 2 weeks or so in the low back, right lower extremity, posterior gluteus, posterior thigh and posterior calf. Rates it at 9-10 on a scale of 10 at its worst, 5-6 on average and a 2 at its least and it is a 5 today. The patient reports no new motor or sensory deficits. No new bowel or bladder incontinence or other complaints. PHYSICAL EXAMINATION: VITAL SIGNS: The patient's blood pressure is 138/71, pulse 84, respirations 16 and temperature is 98.2 degrees Fahrenheit. Weight is 141 pounds. GENERAL: The patient is awake, alert, oriented, appropriate, very pleasant demeanor. The patient is accompanied by her . HEENT EXAMINATION: Shows normocephalic, atraumatic. Extraocular movements are intact and symmetrical. Oral cavity, mucous membranes are moist and pink. Dentition is intact. NECK: Shows anterior throat supple, without palpable lymphadenopathy noted. Swallow reflex is symmetrical. CHEST: Shows normal with inspection. Breath sounds are clear to auscultation bilaterally. HEART: Shows S1 and S2 clear. No murmurs auscultated. ABDOMEN: Soft, nontender and nondistended. No palpable organomegaly is noted. No rebound or guarding is demonstrated. BACK: Shows spine grossly in the midline. Normal-appearing thoracic kyphosis. Some minor flattening of the lumbar lordotic curvature. Lumbar paraspinous muscle shows symmetrical on inspection. On palpation, it shows some moderate tenderness, but only diffusely bilaterally, with good rotational motion maintained, greater than 10 degrees right and left as well as extension greater than 10 degrees and forward flexion of 45 degrees, without pain reported. EXTREMITIES: Lower extremities show deep tendon reflexes at 1+ in the patellar and tendo calcaneus tendons are equal. Motor exam is strong with 5/5 dorsiflexion and extension, quadriceps and hamstring flexion and symmetrical. Peripheral pulses are 1+ posterior tibia. No peripheral edema is noted bilaterally. Options were discussed with the patient. The patient's old chart was reviewed as was her current medications regimen updated. Current review of systems updated today as well. We will proceed with a third in the series of lumbar epidural steroid injection today with fluoroscopic guidance. Risks were again discussed including, but not limited to bleeding, infection, possibility of epidural hematoma, subsequent neurological compromise, dural puncture, headaches, spinal cord and/or nerve damage, side effects to steroid medication and poor results regarding pain control. The patient understands and wishes to proceed. The patient will return to the clinic in approximately 2 weeks for followup. She was counseled on her return appointment, activity level and side effects to be aware of. DIAGNOSES: Lumbar radiculopathy with lumbar spinal stenosis and lumbar degenerative disk disease. PROCEDURE: Lumbar epidural steroid injection in translaminar approach at L5-S1 level using C-arm fluoroscopic guidance under sterile prep and drape using local anesthetic. MEDICATIONS INJECTED: A total of 120 mg Depo-Medrol plus 10 mL of preservative-free normal saline and 2 mL of Isovue for contrast. CONDITION ON DISCHARGE: Stable. The patient tolerated the procedure well, had no complications. ISAAC MACIAS MD DR: MERY/estefani JOB#: [id number] / [id number]
== END | disposition home or self-care (01) ==
LOC: PNCL 10:37
PROVIDERS: ATTEND Anesthesiology
DX: M51.16 Intervertebral disc disorders with radiculopathy, lumbar region (principal); M48.061 Spinal stenosis, lumbar region without neurogenic claudication
CPT/HCPCS: 62323; J1030; J1040; Q9965

== ENCOUNTER → 2018-09-05 | Outpatient (CLI) | payer MEDICARE, OTHER ==
[2017-06-01 18:44] VITALS: BP 126/64
[~2018-09-05] MED LIST changes: +BUPIVACAINE MPF 0.25% 10 ML VIAL. ONE; -IOHEXOL 180 MG/ML 10 ML VIAL. ONE; -methylPREDNISolone ACETATE 80 MG/ML VIAL. ONE
--- NOTE | 2018-09-05 21:26 | PAIN ---
DATE OF SERVICE: 09/05/2018 PROGRESS NOTE FOR PAIN CLINIC DIAGNOSES: 1. Lumbar radiculopathy with lumbar degenerative disk disease and lumbar spinal stenosis. 2. Myofascial pain. HISTORY OF PRESENT ILLNESS: The patient is a 78-year-old female who returns for followup status post lumbar epidural steroid injection x 3 on 08/04/2018. The patient reports she did very well with this with about 80% improvement, but now, the pain is returning and is somewhat different now. The patient reports some significant spasticity and tightness in the low back with some radiation to the lower extremities, but mostly in the low back itself. The patient reports it is worse with walking, movement, change in positions, getting up from a seated position. It has been awakening her from sleep occasionally, but not every night, better with lying down, but worse with sitting or standing. The patient reports it is aching, sharp, burning, cramping and stabbing in the low back bilaterally, slightly worse on the right than the left. Rates the pain as a 9-10 on a scale of 10 on average, 10 at its worst, is a 6 at its least and is a 9 today. The patient reports no new motor or sensory deficits, no new bowel or bladder incontinence or other complaints. PHYSICAL EXAMINATION: VITAL SIGNS: The patient's blood pressure is 136/62, pulse 73, respirations 18, temperature 97.8 degrees Fahrenheit. Height is 5 feet 5 inches, weight is 139 pounds. GENERAL: The patient is awake, alert, oriented, appropriate, very pleasant demeanor. HEENT: Head shows normocephalic, atraumatic. Extraocular movements are intact, symmetrical. Oral cavity: Mucous membranes moist and pink. Dentition is intact. NECK: Shows anterior throat supple without palpable lymphadenopathy noted. Swallow reflex is symmetrical. CHEST: Shows normal with inspection. Breath sounds clear to auscultation bilaterally. HEART: Shows S1, S2 clear. No murmurs auscultated. ABDOMEN: Soft, nontender, nondistended. No palpable organomegaly is noted. No rebound or guarding demonstrated. BACK: Shows spine grossly in the midline. Normal appearing thoracic kyphosis and lumbar lordotic curvature. Lumbar paraspinous muscle shows symmetrical on inspection, with palpation shows some significant tenderness in the middle and lower distribution of paraspinous musculature, very firm rope-like musculature bilaterally in the inferior thoracic and the entire lumbar distribution with very firm rope-like muscles, again worse on the right than the left with some tenderness over the sacroiliac regions, but only mildly with palpation. The patient does show good rotational motion of lumbar spine, both laterally greater than 10 degrees right and left as well as extension greater than 10 degrees, forward flexion 45 degrees without exacerbation of pain. EXTREMITIES: The patient's lower extremities show deep tendon reflexes 1+ in the patellar and tendo calcaneus tendons. Motor exam is strong with 5/5 dorsiflexion, extension, quadriceps and hamstring flexion and symmetrical. Peripheral pulses are 1+ posterior tibia. No peripheral edema is noted bilaterally. Options were discussed with the patient. The patient's old chart was reviewed as her current medication regimen updated. Current review of systems updated today as well. We will proceed with trigger point injections of the bilateral lumbar and thoracic paraspinous musculature as identified. Risks were again discussed including, but not limited to, bleeding, infection, possibility of intravascular injection sequelae, spread of local anesthetic and numbness, side effects of steroid medication and poor results regarding pain control. The patient understands and wished to proceed. The patient will return to the clinic in approximately 2 weeks for followup, was counseled as to return appointment, activity level and side effects to be aware of. DIAGNOSIS: Myofascial pain. PROCEDURE: Trigger point injections, bilateral thoracic paraspinous musculature, bilateral lumbar paraspinous musculature under sterile prep and drape using local anesthetic. MEDICATION INJECTED: A total of 40 mg of Depo-Medrol plus total of 12 mL of 0.25% bupivacaine after negative aspiration at each injection site. CONDITION AT DISCHARGE: Stable. The patient tolerated the procedure well, had no complications. ISAAC MACIAS MD DR: MERY/estefani JOB#: [id number] / [id number]
== END | disposition home or self-care (01) ==
LOC: PNCL 08:15
PROVIDERS: ATTEND Anesthesiology
DX: M79.18 Myalgia, other site (principal); M51.16 Intervertebral disc disorders with radiculopathy, lumbar region; M48.061 Spinal stenosis, lumbar region without neurogenic claudication
CPT/HCPCS: 20553; J1030; J3490

== ENCOUNTER → 2018-10-25 | Outpatient (CLI) | payer MEDICARE, OTHER ==
[2017-06-01 18:44] VITALS: BP 126/64
[~2018-10-25] MED LIST changes: -BUPIVACAINE MPF 0.25% 10 ML VIAL. ONE; +IOHEXOL 180 MG/ML 10 ML VIAL. ONE; +methylPREDNISolone ACETATE 80 MG/ML VIAL. ONE
--- NOTE | 2018-10-25 12:25 | PAIN ---
DATE OF SERVICE: 10/25/2018 PREOPERATIVE DIAGNOSES: Lumbar radiculopathy with lumbar spinal stenosis, lumbar degenerative disk disease. POSTOPERATIVE DIAGNOSES: Lumbar radiculopathy with lumbar spinal stenosis, lumbar degenerative disk disease. HISTORY OF PRESENT ILLNESS: The patient is a 78-year-old female who returns for followup status post lumbar epidural steroid injection x 3 in the past, most recently 08/04/2018. The patient did very well with this with about 80% improvement. The patient reports pain is returning now in the low back. We had seen her on 09/05, did some trigger point injections, which helped a little, but not significantly. The patient reports the pain is in the low back, right lower extremity, now posterior gluteus, posterior thigh, posterior calf, radiating across the low back as well, worse with walking, standing, change in positions, describes it is burning and stabbing, aching and sharp and alternating. The patient reports it is a 10 on a scale of 10 at its worst, 7 to 8 on average, 5 at its least, and it is a 5 today. The patient reports no new motor or sensory deficits, better with sitting or lying down, does not awaken her from sleep at night, worse with walking and standing or bending. PHYSICAL EXAMINATION: VITAL SIGNS: The patient's blood pressure is 111/64, pulse 85, respirations 16, temperature 98.7 degrees Fahrenheit, height is 5 feet 5 inches, and weight is 139 pounds. GENERAL: The patient is awake, alert, oriented, appropriate, very pleasant demeanor. HEENT: Head shows normocephalic, atraumatic. Extraocular movements are intact and symmetrical. Oral cavity, mucous membranes are moist and pink. Dentition is intact. NECK: Shows anterior throat supple without palpable lymphadenopathy noted. Swallow reflex symmetrical. CHEST: Shows normal with inspection. Breath sounds are clear to auscultation bilaterally. HEART: Shows S1, S2 clear. No murmurs auscultated. ABDOMEN: Soft, nontender, nondistended. No palpable organomegaly is noted. No rebound or guarding demonstrated. BACK: Shows spine grossly in the midline. Normal appearing thoracic kyphosis, some mild flattening of lumbar lordotic curvature. Lumbar paraspinous muscle shows symmetrical on inspection. On palpation, some moderate tenderness diffusely in the low lumbar distribution, slightly more on the right than the left, but symmetrical, no evidence of atrophy, hypertrophy, no trigger points, no radiation with rotation. EXTREMITIES: Lower extremities showed deep tendon reflexes at 1+ in the patellar and tendo-calcaneus tendons are equal. Motor exam is strong with 5/5 dorsiflexion, extension, quadriceps and hamstring flexion. Peripheral pulses are 1+. No peripheral edema is noted bilaterally. Options were discussed with the patient. The patient's old chart was reviewed as well as her current medication regimen updated. Current review of systems updated today as well. We will proceed with a first in the series of lumbar epidural steroid injection today with fluoroscopic guidance. Risks were again discussed including, but not limited to bleeding, infection, possibility of epidural hematoma, subsequent neurologic compromise, dural puncture, headaches, spinal cord and/or nerve damage, side effects of steroid medication and poor results regarding pain control. The patient understands and wished to proceed. The patient will return to clinic in approximately 2 weeks for followup, was counseled on return appointment, activity level and side effects to be aware of. DIAGNOSES: Lumbar radiculopathy with lumbar spinal stenosis, lumbar degenerative disk disease. PROCEDURE: Lumbar epidural steroid injection, translaminar approach L5-S1 level using C-arm fluoroscopic guidance under sterile prep and drape using local anesthetic. MEDICATION INJECTED: A total of 120 mg Depo-Medrol plus 10 mL of preservative-free normal saline and 2 mL of Isovue for contrast. CONDITION AT DISCHARGE: Stable. The patient tolerated the procedure well, had no complications. ISAAC MACIAS MD DR: MERY/estefani JOB#: [id number] / [id number]
== END ==
LOC: PNCL 12:09
PROVIDERS: ATTEND Anesthesiology
DX: M51.16 Intervertebral disc disorders with radiculopathy, lumbar region (principal); M48.061 Spinal stenosis, lumbar region without neurogenic claudication
CPT/HCPCS: 62323; J1030; J1040; Q9965

== ENCOUNTER → 2018-11-16 | Outpatient (CLI) | payer MEDICARE, OTHER ==
[2017-06-01 18:44] VITALS: BP 126/64
[~2018-11-16] MED LIST changes: -IOHEXOL 180 MG/ML 10 ML VIAL. ONE; -TIZA4TAB PO; +TIZA4TAB2 PO; -methylPREDNISolone ACETATE 40 MG/ML VIAL. ONE; -methylPREDNISolone ACETATE 80 MG/ML VIAL. ONE
--- NOTE | 2018-11-16 16:35 | KCIC ---
KNEE RIGHT 3V, HIP RIGHT 2V WITH PELVIS History: Polyarthritis. Right hip and knee pain for 1.5 months.. 3 view right knee Bone demineralization. No evidence of acute fracture. No aggressive bone destruction. Mild density within the medial and lateral menisci compatible with chondrocalcinosis. Mild degenerative changes with mild narrowing of the medial joint compartment. Small marginal osteophytes about the knee. IMPRESSION: Bone demineralization. Mild degenerative change. AP pelvis with two-view right hip Mild degenerative change about both hips, right greater than left. No evidence of acute fracture or aggressive bone destruction. There is bone demineralization. Surgical screws are identified overlying the pubic bones bilaterally. Severe degenerative changes and scoliosis at the lower spine. IMPRESSION: Mild degenerative changes. Electronically signed by: Hernan Crow MD (11/16/2018 4:32 PM) [facility]
== END | disposition home or self-care (01) ==
LOC: KCIC 13:59
PROVIDERS: ATTEND Family Medicine
DX: M17.11 Unilateral primary osteoarthritis, right knee (principal); M81.0 Age-related osteoporosis without current pathological fracture; M16.0 Bilateral primary osteoarthritis of hip; M47.819 Spondylosis without myelopathy or radiculopathy, site unspecified; M41.80 Other forms of scoliosis, site unspecified; M25.762 Osteophyte, left knee
CPT/HCPCS: 73502; 73562

== ENCOUNTER → 2018-12-08 | Outpatient (CLI) | payer MEDICARE, OTHER ==
[2017-06-01 18:44] VITALS: BP 126/64
--- NOTE | 2018-12-08 17:29 | KCIC ---
Examination: 3 views of the right knee HISTORY: History of right knee pain, fall COMPARISON: 11/21/2018. Findings: The alignment of the knee joint grossly appears unremarkable. There is moderate joint space loss identified in the right, lateral compartment femoral compartments. Chondrocalcinosis identified in the medial, lateral meniscus region. IMPRESSION: 1. Moderate tricompartmental degenerative disease. 2. Chondrocalcinosis. Electronically signed by: Mark Cuadra MD (12/08/2018 5:25 PM) [facility]
--- NOTE | 2018-12-09 17:13 | KCIC ---
AP view of the pelvis and two-view study of the right hip Clinical indications: Recent fall since last x-rays that were done here. Right hip pain. COMPARISON: November 21, 2018. FINDINGS: No acute fracture or dislocation or lytic process is evident. No diastases of the symphysis pubis or either SI joint is seen. Levoscoliosis and degenerative lumbar spondylosis of the lumbar spine are seen. IMPRESSION: No acute fracture. Electronically signed by: Rajiv Trevino MD (12/09/2018 5:10 PM) [facility]
== END | disposition home or self-care (01) ==
LOC: KCIC 15:10
PROVIDERS: ATTEND Family Medicine
DX: M11.261 Other chondrocalcinosis, right knee (principal); M17.11 Unilateral primary osteoarthritis, right knee; M47.816 Spondylosis without myelopathy or radiculopathy, lumbar region; M41.86 Other forms of scoliosis, lumbar region
CPT/HCPCS: 73502; 73562

== ENCOUNTER → 2019-03-09 | Outpatient (CLI) | payer MEDICARE, OTHER ==
[2017-06-01 18:44] VITALS: BP 126/64
--- NOTE | 2019-03-09 13:59 | KCIC ---
MR of the right hip HISTORY: Right hip pain since September. TECHNIQUE: Routine multiplanar sequences are obtained. FINDINGS: No evidence of acute fracture, bone marrow edema or femoral head osteonecrosis. No significant joint effusion. At least moderate degenerative changes at the right hip. Tear of the labrum, greatest superiorly. High-grade tearing of the right gluteus minimus and medius tendons. Fluid collection along the right greater trochanter in the region of these tendons measures 9.5 x 4.0 x 2.0 cm. Soft tissue edema between the right greater trochanter and ischium, within and surrounding the quadratus femoris muscle. Large [id number] coronal survey sequence demonstrates degenerative changes at the left hip. IMPRESSION: 1. Right hip labral tear. 2. Right hip demonstrates at least moderate DJD. 3. High-grade tearing of the right gluteus minimus and medius tendons with associated fluid collection or bursitis. 4. Limited visualization of the left hip also demonstrates degenerative changes. Electronically signed by: Hernan Crow MD (03/09/2019 1:56 PM) [facility]
== END | disposition home or self-care (01) ==
LOC: KCIC MRI 11:30
PROVIDERS: ATTEND Family Medicine
DX: S73.191A Other sprain of right hip, initial encounter (principal); S76.011A Strain of muscle, fascia and tendon of right hip, initial encounter; M16.11 Unilateral primary osteoarthritis, right hip; X58.XXXA Exposure to other specified factors, initial encounter; Y93.89 Activity, other specified; Y92.89 Other specified places as the place of occurrence of the external cause; Y99.8 Other external cause status
CPT/HCPCS: 73721

== ENCOUNTER → 2019-06-20 | Outpatient (CLI) | payer MEDICARE ==
[2017-06-01 18:44] VITALS: BP 126/64
[~2019-06-20] MED LIST changes: +OXYC-325 PO
[2019-06-20 14:02] LABS: BASO % 1 % (0-3); EOS % 1 % (0-3); HEMATOCRIT 41.3 % (36.0-47.0); LYMPH # 1.3 x10^3/uL (1.0-4.8); LYMPH % 32 % (24-48); MEAN CORPUSCULAR HEMOGLOBIN 34 pg (25-35); MEAN CORPUSCULAR HGB CONC 34 g/dL (31-37); MEAN CORPUSCULAR VOLUME 99 fL (79-100); MONO # 0.2 x10^3/uL (0.0-1.1); MONO % 5 % (0-9); NEUT # 2.4 x10^3/uL (1.8-7.7); NEUT % 61 % (31-73); PLATELET COUNT 167 x10^3/uL (140-400); RED BLOOD COUNT 4.16 x10^6/uL (3.50-5.40); RED CELL DISTRIBUTION WIDTH 14.4 % (11.5-14.5)
[2019-06-20 14:14] LABS: CALCIUM 9.3 mg/dL (8.5-10.1); CREATININE 0.7 mg/dL (0.6-1.0); GFR 80.9; POTASSIUM 4.5 mmol/L (3.5-5.1)
--- NOTE | 2019-06-20 14:48 | EKG ---
[facility] [address] [place] [address] Test Date: 2019-06-20 Test Time: 14:31:19 Pat Name: CIERA MORRIS Department: Room: Gender: F Heavy Equipment Mechanic: : 1940 Requested By: RANDELL OHARA Order Number: [id number] Reading MD: Anatoly Corona MD Measurements Intervals [place] Rate: 84 P: 49 MS: 134 QRS: 64 QRSD: 78 T: 42 QT: 374 QTc: 445 Interpretive Statements SINUS RHYTHM PACS Electronically Signed On 06-22-2019 9:36:38 VENEER REDRIER by Anatoly Corona MD
== END | disposition home or self-care (01) ==
LOC: SURGPAT 13:35
PROVIDERS: ATTEND Orthopaedic Surgery
DX: Z01.818 Encounter for other preprocedural examination (principal); S76.011A Strain of muscle, fascia and tendon of right hip, initial encounter; X58.XXXA Exposure to other specified factors, initial encounter; Y93.89 Activity, other specified; Y92.89 Other specified places as the place of occurrence of the external cause; Y99.8 Other external cause status
CPT/HCPCS: 36415; 80048; 85025; 93005

== ENCOUNTER → 2019-08-16 | Outpatient (CLI) | payer MEDICARE, OTHER ==
[2019-08-07 11:00] VITALS: BP 131/69
[~2019-08-16] MED LIST changes: +CIPR250T30 PO; +GADOTERATE 7.5 MMOL/15ML VIAL. IVP ONE; +HYDR-2763 PO; +LACT1CAP19 PO; +METR500T PO; +POLY17PO28 PO
--- NOTE | 2019-08-16 12:07 | KCIC ---
EXAM: MRI Abdomen with and without IV contrast INDICATION: Liver lesion. TECHNIQUE: Multiplanar, multisequence MRI of the abdomen with and without IV contrast. 12 mL Dotarem administered IV. IV CONTRAST: Administered. COMPARISON: Contrast-enhanced abdomen pelvis CTs of 08/04/2019 and 06/01/2017. FINDINGS: LIVER: The enlarging hypodense lesion in hepatic segment IVb described on prior CT shows loss of signal on opposed phase imaging on the T1-weighted sequence (comparing image 15 of the opposed phase series 2 with image 16 of the in phase series 2), implying a fatty lesion. There is no enhancement and restricted diffusion. BILIARY SYSTEM: Cholelithiasis. Bile ducts are not dilated. PANCREAS: Unremarkable. SPLEEN: Mildly enlarged, measuring at least 15.5 cm in length. ADRENALS: Unremarkable. KIDNEYS: Bilateral benign cortical cysts are incidentally noted, largest measuring 3 cm at the superior pole right kidney GASTROINTESTINAL: The stomach and visualized bowel are unremarkable. MESENTERY/PERITONEUM/RETROPERITONEUM: Unremarkable. VASCULAR: Unremarkable. LYMPH NODES: No adenopathy. OSSEOUS & SOFT TISSUES: Unremarkable. IMPRESSION: 1. The lesion in the left hepatic lobe most likely represents a benign lesion such as focal fatty infiltration adjacent to the gallbladder fossa. 2. Cholelithiasis. 3. Mild splenomegaly. Recommend clinical correlation and follow-up. Electronically signed by: Juila Ruiz MD (08/16/2019 12:04 PM) [id number]
== END | disposition home or self-care (01) ==
LOC: KCIC MRI 10:06
PROVIDERS: ATTEND Internal Medicine Gastroenterology
DX: K76.89 Other specified diseases of liver (principal); K80.20 Calculus of gallbladder without cholecystitis without obstruction; R16.1 Splenomegaly, not elsewhere classified; N28.1 Cyst of kidney, acquired
CPT/HCPCS: 74183; A9575

== ENCOUNTER → 2019-08-23 | Day surgery (SDC) | payer MEDICARE, OTHER ==
[~2019-08-23] MED LIST changes: -GADOTERATE 7.5 MMOL/15ML VIAL. IVP ONE; +HYDROmorphone 2 MG/ML VIAL IV PRN; +IV RINGERS,LACTATED 1000ML 1,000 ML IV SCH; +LIDOCAINE 1% PF 2 ML VIAL. ID PRN; +MORPHINE SULFATE 2 MG/ML VIAL. IV PRN; +PROCHLORPERAZINE 10 MG/2 ML VIAL. IV PRN; +PROPOFOL 40 ML IV ONE; +fentaNYL PF VIAL 100 MCG/2 ML VIAL IV PRN
[2019-08-23 09:21] VITALS: BP 133/63
== END ==
LOC: ENDOS 07:28
PROVIDERS: ATTEND Internal Medicine Gastroenterology
DX: R13.10 Dysphagia, unspecified (principal); K57.30 Diverticulosis of large intestine without perforation or abscess without bleeding; K29.50 Unspecified chronic gastritis without bleeding; K30 Functional dyspepsia; K64.0 First degree hemorrhoids
CPT/HCPCS: 43235; 45378; J2704

== ENCOUNTER → 2019-09-05 | Outpatient (CLI) | payer MEDICARE, OTHER ==
[2019-08-23 09:21] VITALS: BP 133/63
[~2019-09-05] MED LIST changes: -HYDROmorphone 2 MG/ML VIAL IV PRN; +IOHEXOL 180 MG/ML 10 ML VIAL. ONE; -IV RINGERS,LACTATED 1000ML 1,000 ML IV SCH; -LIDOCAINE 1% PF 2 ML VIAL. ID PRN; -MORPHINE SULFATE 2 MG/ML VIAL. IV PRN; -PROCHLORPERAZINE 10 MG/2 ML VIAL. IV PRN; -PROPOFOL 40 ML IV ONE; -fentaNYL PF VIAL 100 MCG/2 ML VIAL IV PRN; +methylPREDNISolone ACETATE 40 MG/ML VIAL. ONE; +methylPREDNISolone ACETATE 80 MG/ML VIAL. ONE
--- NOTE | 2019-09-05 12:58 | PAIN ---
DATE OF SERVICE: 09/05/2019 PROGRESS NOTE FOR PAIN CLINIC DIAGNOSES: Lumbar radiculopathy with lumbar spinal stenosis, lumbar degenerative disk disease and myofascial pain. HISTORY OF PRESENT ILLNESS: The patient is a 79-year-old female who returns for followup status post lumbar epidural steroid injections, last seen in 10/2018. The patient did very well after her last injection with about an 80% improvement. The patient reports that in October later that month, she was at home and fell on her driveway and fell against a brick wall and tore her gluteus muscle on the right side. She had that repaired just recently in 06/27/2019 and is doing much better, still using walker, but the pain in her back has now exacerbated significantly since the surgery radiating to the right lower extremity, posterior gluteus, posterior thigh, occasionally in the calf, but mostly just in the back of the thigh. The patient reports it is a 9-10 on a scale of 10 at its worst over the past week, 5-6 on average, 2 at its least and is a 5 today. The patient reports it is aching and sharp, becoming more burning and stabbing in the right hip and low back, radiating to the right lower extremity. The patient reports no loss of motor function with significant pain with walking, standing, changing positions, better with sitting or lying down, does not awaken her from sleep at night, very similar to the pain she had last summer prior to the injury. The patient reports no new motor or sensory deficits, no new bowel or bladder incontinence or other complaints. PHYSICAL EXAMINATION: VITAL SIGNS: The patient's blood pressure is 124/76, pulse 87, respirations 16, temperature 98.2 degrees Fahrenheit, weight is 125 pounds. GENERAL: The patient is awake, alert, oriented, appropriate, very pleasant demeanor. HEENT: Shows normocephalic, atraumatic. Extraocular movements are intact and symmetrical. Oral cavity; mucous membranes moist and pink. Dentition is intact. NECK: Shows anterior throat supple without palpable lymphadenopathy noted. Swallow reflex symmetrical. CHEST: Shows normal on inspection. Breath sounds are clear bilaterally. HEART: Shows S1, S2 clear. No murmurs auscultated. ABDOMEN: Soft, nontender, nondistended. No palpable organomegaly is noted. No rebound or guarding demonstrated. BACK: Shows spine grossly in the midline. Normal appearing thoracic kyphosis and lumbar lordotic curvature. Lumbar paraspinous muscle shows symmetrical on inspection, with palpation has some moderate tenderness diffusely, but only in the low lumbar distribution bilaterally without significant radiation, no asymmetry, no atrophy, hypertrophy, no trigger points. The patient has good rotational motion of lumbar spine, both laterally as well as extension and flexion without significant increase in pain. EXTREMITIES: The patient's lower extremities show deep tendon reflexes at 1+ patellar and tendo calcaneus tendons. Motor exam is strong with 5/5 dorsiflexion, extension, quadriceps and hamstring flexion and peripheral pulses are 1+ posterior tibial. No peripheral edema is noted bilaterally. Options were discussed with the patient. The patient's old chart was reviewed as her current medication regimen updated. Current review of systems updated today as well. We will proceed with a lumbar epidural steroid injection today with fluoroscopic guidance. Risks were again discussed including, but not limited to bleeding, infection, possibility of epidural hematoma, subsequent neurological compromise, dural puncture, headaches, spinal cord and/or nerve damage, side effects of steroid medication and poor results regarding pain control. The patient understands and wished to proceed. The patient will return to clinic in approximately 2 weeks for followup. She was counseled on return appointment, activity level and side effects to be aware of. DIAGNOSES: Lumbar radiculopathy with lumbar spinal stenosis, lumbar degenerative disk disease. PROCEDURE: Lumbar epidural steroid injection, translaminar approach under sterile prep and drape, using local anesthetic. MEDICATION INJECTED: A total of 120 mg Depo-Medrol plus 10 mL preservative-free normal saline and 2 mL of contrast. CONDITION AT DISCHARGE: Stable. The patient tolerated the procedure well, had no complications. ISAAC MACIAS MD DR: MERY/estefani JOB#: [id number] / [id number]
== END ==
LOC: PNCL 11:45
PROVIDERS: ATTEND Anesthesiology
DX: M51.16 Intervertebral disc disorders with radiculopathy, lumbar region (principal); M48.061 Spinal stenosis, lumbar region without neurogenic claudication; M79.18 Myalgia, other site
CPT/HCPCS: 62323; J1030; J1040; Q9965

== ENCOUNTER → 2019-12-07 | Outpatient (CLI) | payer MEDICARE, OTHER ==
[2019-08-23 09:21] VITALS: BP 133/63
[~2019-12-07] MED LIST changes: +ASCO100019 PO; -ASCO10002 PO; +BUPIVACAINE MPF 0.25% 10 ML VIAL. ONE; +MULT-445 PO; -MULT1TAB52 PO
--- NOTE | 2019-12-07 13:36 | PDOC ---
Progress Note - Pain Clinic Date of Service: DOS: DATE: 12/07/19 TIME: 13:28 Diagnosis: Dx: Lumbar radiculopathy with lumbar spinal stenosis and lumbar degenerative disc disease Myofascial pain Bilateral sacroiliitis History or Present Illness: HPI: 79-year-old female returns for follow-up status post lumbar epidural steroid injections as well as trigger point injections in the past most recently seen September 05, 2019 and lumbar epidural steroid injection at that time with about 80% improvement. Patient reports he is having different pain now which is in the bilateral hips slightly worse on the right than the left posteriorly has recently seen her orthopedic surgeon who did a gluteus procedure on the right for her right hip and she is healing well from this. Patient reports s ignificant pain however it in the posterior aspect of the hips bilaterally near the tailbone. Patient reports is worse with walking standing changing position especially getting up from a seated position rates it as a 10 on scale 10 is worst 9-10 on average at a 4 this least over the past week and is a 9 today patient grabs a sharp and stabbing worse with motion weightbearing bending and stooping patient reports is better with stretching she can usually reposition it is does not awaken her from sleep most nights but does occasionally. Patient reports no new motor or sensory deficits no new bowel or bladder incontinence or other complaints. Physical Exam: VS: Blood pressure is 137/67 pulse 73 respirations 18 temperature 98.4 F weight is 1 2 9 pounds PE: PHYSICAL EXAMINATION: GENERAL: The patient is awake, alert, oriented, appropriate, very pleasant demeanor HEENT: Shows normocephalic, atraumatic. Extraocular movements are intact and symmetrical. Oral cavity: Mucous membranes moist and pink. Dentition intact. NECK: Shows anterior throat supple without palpable lymphadenopathy noted. Swallow reflex symmetrical. CHEST: Shows normal on inspection. Breath sounds are clear bilaterally, no rales rhonchi or wheezes auscultated. HEART: Shows S1, S2 clear. No murmurs auscultated. ABDOMEN: Soft, nontender, nondistended. No palpable organomegaly is noted. No rebound or guarding demonstrated. BACK: Shows spine grossly in the midline. Normal-appearing cervical lordotic curvature. There is slightly increased thoracic kyphosis, some minor flattening of the lumbar lordotic curvature. Lumbar paraspinous muscles show symmetrical on inspection, on palpation shows some moderate tenderness diffusely throughout the upper, middle and lower distribution of the paraspinous muscles bilaterally but without specific trigger points, without radiation of pain. The patient has good rotational motion of the lumbar spine, both laterally as well as extension and flexion without significant difficulty. No tenderness over the spinous processes, or sacrum but has significant tenderness over the bilateral superior aspect of the sacroiliac regions, without specific radiation but very tender over the posterior superior iliac spines as well as the superior sacroiliac joints, slightly worse and more tender on the right but present bilaterally.. EXTREMITIES: Lower extremities show deep tendon reflexes 1+ in the patellar and tendo calcaneus tendons. Motor exam is 5 on a scale of 5 with right dorsiflexion, extension, quadriceps and hamstring flexion and 5/5 on the left. Peripheral pulses are 1 to posterior tibial. [] peripheral edema is noted bilaterally. Lower extremities are warm and dry to touch, equal in color and appearance. Straight leg raise noted to be negative on the right, left side is negative. Gaenslen's maneuvers are grossly positive bilaterally with posterior displacement of the hip and external rotation of the lower leg slightly more tender on the right than the left with pain reproduced in the sacroiliac region bilaterally. Elvin's maneuvers are negative. SKIN: Shows warm and dry, good turgor. No edema. No sores, rashes or bruising throughout. Procedure: Procedure: Options were discussed with the patient, including conservative medical management is continued physical therapies as well as interventional techniques. Patient would like to pursue interventional techniques. We discussed bilateral sacroiliac joint injections using descriptions as well as anatomical model to describe the procedures. Risks were discussed including but not limited to bleeding infection possibility of intravascular injection sequelae spread of local anesthetic numbness side effects of steroid medication exposure to fluoroscopy and portals guarding pain control. Patient understands wishes to proceed. Patient return to clinic in approximately 2 weeks for follow-up, was counseled as to return appointment activity and side effects to be aware of. Medication Injected: Med Injected: Under sterile prep and drape patient in prone position using C-arm fluoroscopic guidance both AP and lateral views the sacroiliac joints were visualized and the right sacroiliac joint was then identified and locally anesthetized overlying the superior middle portion of the sacroiliac joint with 1% lidocaine. Using a 22-gauge stylette and quinkie spinal needle, the joint was entered under direct visual guidance with C-arm fluoroscopy. This was confirmed with AP and lateral views stylette was removed contrast was injected 1.5 cc with good spread data filed in the sacroiliac joint itself. This was repeated for the left side and the same technique and with similar spread of contrast within the left sacroili ac joint. At this time solution containing 2 cc 0.25% bupivacaine and 60 mg Depo-Medrol each side was injected. [place] were removed, sterile bandage was applied, patient tolerated procedure well had no complications. Condition at Discharge: Condition at Discharge: Condition at discharge stable patient, procedure well had no complications. ISAAC MACIAS MD Dec 07, 2019 13:36
== END | disposition home or self-care (01) ==
LOC: PNCL 11:33
PROVIDERS: ATTEND Anesthesiology
DX: M46.1 Sacroiliitis, not elsewhere classified (principal); M79.18 Myalgia, other site; M51.16 Intervertebral disc disorders with radiculopathy, lumbar region; M48.061 Spinal stenosis, lumbar region without neurogenic claudication
CPT/HCPCS: 27096; J1030; J1040; J3490; Q9965; G0260

== ENCOUNTER → 2019-12-26 | Outpatient (CLI) | payer MEDICARE, OTHER ==
[2019-08-23 09:21] VITALS: BP 133/63
--- NOTE | 2019-12-26 12:21 | PDOC ---
Progress Note - Pain Clinic Date of Service: DOS: DATE: 12/26/19 TIME: 12:16 Diagnosis: Dx: Lumbar radiculopathy with lumbar spinal stenosis lumbar degenerative disc disease Myofascial pain Bilateral sacroiliitis History or Present Illness: HPI: 79-year-old female returns follow-up status post bilateral sacroiliac joint injections as well as previous lumbar epidural steroid injections. Patient rep orts after the sacroiliac joint injections are doing much better in the low back still some pain in the right posterior hip greater than left but present bilaterally patient reports he is doing very well is been about 2 weeks since her injections she been increasing her activity at home with distance walking doing household activities greater ease and comfort traveling greater distances and sleeping better at night. Patient reports her pain is a 9-10 on scale 10 is worse of the past week 6 on 7 on average 3-4 at its least and is a 6 today patient describes pain as aching and dull located fairly well in the low back and hips itself without radiation to lower extremities at this time. Reports no new motor or sensory deficits no new bowel or bladder incontinence or other complaints Physical Exam: VS: Blood pressure is 112/66 pulse 83 respirations are 16 temperature is 98.3 F weight is 138 pounds PE: PHYSICAL EXAMINATION: GENERAL: The patient is awake, alert, oriented, appropriate, very pleasant demeanor HEENT: Shows normocephalic, atraumatic. Extraocular movements are intact and symmetrical. Oral cavity: Mucous membranes moist and pink. NECK: Shows anterior throat supple without palpable lymphadenopathy noted. Swallow reflex symmetrical. CHEST: Shows normal on inspection. Breath sounds are clear bilaterally. HEART: Shows S1, S2 clear. No murmurs auscultated. ABDOMEN: Soft, nontender, nondistended. No palpable organomegaly is noted. No rebound or guarding demonstrated. BACK: Shows spine grossly in the midline. Normal-appearing cervical lordotic curvature. There is slightly increased thoracic kyphosis, some minor flattening of the lumbar lordotic curvature. Lumbar paraspinous muscles show symmetrical on inspection, on palpation shows some moderate tenderness diffusely throughout the upper, middle and lower distribution of the paraspinous muscles bilaterally without specific trigger points, without radiation of pain. The patient has good rotational motion of the lumbar spine, both laterally as well as extension and flexion without significant difficulty. No tenderness over the spinous processes, or sacrum ,but sacroiliac joints show significant tenderness right greater than left at the posterior superior iliac spine as well as the superior aspect of the sacroiliac joints bilaterally very tender with palpation but without specific radiation.. EXTREMITIES: Lower extremities show deep tendon reflexes 1+ in the patellar and tendo calcaneus tendons. Motor exam is 5 on a scale of 5 with right dorsiflexion, extension, quadriceps and hamstring flexion and 5/5 on the left. Peripheral pulses are 1+ posterior tibial. No peripheral edema is noted bilaterally. Lower extremities are warm and dry to touch, equal in color and appearance. Gaenslen's maneuvers are positive on the right and mildly positive on the left with external rotation of the hip and posterior displacement of the lower leg. SKIN: Shows warm and dry, good turgor. No edema. No sores, rashes or bruising throughout. Procedure: Procedure: Options were discussed with the patient patient will chart reviews her current medication regimen updated current review of systems updated today as well. We will proceed with bilateral sacroiliac joint injections today with fluoroscopic guidance risks were again discussed including but not limited to bleeding infection possibility of intravascular injection sequelae spread local anesthetic and numbness side effects of steroid medication and poor results regarding pain control. Patient understands wished to proceed. Patient return to clinic in approximately 4 weeks for follow-up was counseled as to return appointment activity level and side effects to be aware of. Medication Injected: Med Injected: Under sterile prep and drape using C-arm fluoroscopic guidance, bilateral sacroiliac joints injected using 3 cc 0.25% bupivacaine +60 mg Depo-Medrol +2 cc contrast/side. Condition at discharge is stable, patient tolerated procedure well and had no complications. Condition at Discharge: Condition at Discharge: Condition at discharge stable patient tolerated the procedure well had no complications ISAAC MACIAS MD Dec 26, 2019 12:21
== END | disposition home or self-care (01) ==
LOC: PNCL 11:09
PROVIDERS: ATTEND Anesthesiology
DX: M51.16 Intervertebral disc disorders with radiculopathy, lumbar region (principal); M48.061 Spinal stenosis, lumbar region without neurogenic claudication; M46.1 Sacroiliitis, not elsewhere classified; Z79.899 Other long term (current) drug therapy
CPT/HCPCS: G0260; J1030; J1040; J3490; Q9965; 27096

== ENCOUNTER → 2020-01-11 | Outpatient (CLI) | payer MEDICARE, OTHER ==
[2019-08-23 09:21] VITALS: BP 133/63
[~2020-01-11] MED LIST changes: -BUPIVACAINE MPF 0.25% 10 ML VIAL. ONE; -IOHEXOL 180 MG/ML 10 ML VIAL. ONE; -methylPREDNISolone ACETATE 40 MG/ML VIAL. ONE; -methylPREDNISolone ACETATE 80 MG/ML VIAL. ONE
--- NOTE | 2020-01-11 09:53 | KCIC ---
MRI Lumbar Spine without contrast History: Chronic low back pain, left leg weakness, scoliosis Technique: Multiplanar, multi sequential noncontrast MR imaging was performed of the lumbar spine. Comparison: October 13, 2016 Findings: There is again moderate to severe levoscoliosis centered near L4. There is again left lateral subluxation L4 relative to L5 estimated about 1 cm, also right lateral subluxation L2 relative L3 estimated about 0.9 cm. There is again mild posterior subluxation L2 relative to L3, grade 1 anterior spondylolisthesis L4-5, and negligible posterior subluxation L1 relative to L2 and L3 relative to L4. There is variable advanced degenerative disc disease throughout the lumbar spine, L5-S1 least affected. There is no significant focal marrow edema. Lumbar vertebral body stature is overall preserved. Conus terminates at T12-L1. There are are likely cysts of the bilateral kidneys including of the renal pelves bilaterally. T11-12: There is posterior bulge as seen previously with indentation upon the ventral thecal sac with resultant very mild narrowing. There is facet degenerative change contributing to mild narrowing of the left neural foramen. T12-L1: There is again posterior bulge more eccentric to the left lateral recess. There is mild facet degenerative change and buckling of the ligamentum flavum. There is increased mild to moderate narrowing of the far left lateral recess. There is at least moderate narrowing of the left neural foramen somewhat greater in the interval, narrowing by disc osteophyte complex and bulge as well as by facet posteriorly. Right neural foramen is adequate. L1-L2: There is again disc osteophyte complex and bulge. There is again mild buckling of the ligamentum flavum and facet hypertrophic change. There is again moderate narrowing of the left lateral recess, mild to moderate narrowing of the far right lateral recess. There is again moderate to severe narrowing the left neural foramen, moderate narrowing on the right from posteriorly by facet. L2-L3: There is again disc osteophyte complex and superimposed prominent broad posterior protrusion. There is again severe right and moderate left facet degenerative change, also moderate buckling of the ligamentum flavum. There is overall fairly severe spinal stenosis including lateral recess stenosis bilaterally with impingement of the descending L3 nerve roots, limited preserved central subarachnoid space. There is severe narrowing of the right neural foramen primarily from posteriorly by facet, [id number] narrowing greater distally of the left neural foramen. Partially uncovered disc and bulge again contacts the extraforaminal left L2 nerve root. L3-L4: There is again moderate to severe facet degenerative change greater on the right and [id number] buckling of the ligamentum flavum. There is again moderate to severe right and [id number] left lateral recess stenosis, also [id number] narrowing of the central canal. There is severe narrowing of the right neural foramen from posteriorly by facet, [id number] narrowing on the left by disc osteophyte complex and facet. L4-L5: There is again to severe facet degenerative change greater on the right. There is mild buckling of the ligamentum flavum. There is again minimal disc osteophyte complex and bulge. Combination of findings again results in severe spinal stenosis with near complete effacement of subarachnoid space. There is again severe lateral recess stenosis bilaterally with impingement of the descending L5 nerve roots. There is again severe right and moderate left neural foramina compromise. L5-S1: There is moderate facet degenerative change greater on the left and mild buckling of the ligamentum flavum. There is again very shallow protrusion more eccentric to the left lateral recess. There is similar moderate to severe narrowing of the left lateral recess with degree of impingement of the descending left S1 nerve root. There is again severe narrowing of the left neural foramen mostly from facet although also disc osteophyte complex inferiorly. There is minimal narrowing of the right neural foramen. Impression: 1. There is again multilevel advanced degenerative disc disease of lumbar spine. There is again moderate to severe lumbar levoscoliosis and multilevel abnormal alignment including abnormal lateral alignment as stated. There is again severe spinal stenosis at L4-5, also significant lateral recess stenosis such as bilaterally at L2-3, on the left at L5-S1, and on the right at L3-4 and to lesser degree at other levels. 2. There is multilevel lumbar neural foramina compromise, more significant narrowing on the left at L1-L2 and L5-S1, on the right at L2-3, L3-4, and L4-5, and to a lesser degree at other levels as described. 3. There are again multiple cysts of the bilateral kidneys. Electronically signed by: Denys Joseph MD (01/11/2020 9:50 AM) [id number]
== END | disposition home or self-care (01) ==
LOC: KCIC MRI 07:50
PROVIDERS: ATTEND Family Medicine
DX: M47.817 Spondylosis without myelopathy or radiculopathy, lumbosacral region (principal); M51.37 Other intervertebral disc degeneration, lumbosacral region; M48.07 Spinal stenosis, lumbosacral region; N28.1 Cyst of kidney, acquired; M25.78 Osteophyte, vertebrae; M43.16 Spondylolisthesis, lumbar region; M41.86 Other forms of scoliosis, lumbar region; R29.898 Other symptoms and signs involving the musculoskeletal system
CPT/HCPCS: 72148

== ENCOUNTER → 2020-04-08 | Outpatient (CLI) | payer MEDICARE, OTHER ==
[2019-08-23 09:21] VITALS: BP 133/63
[~2020-04-08] MED LIST changes: +IOHEXOL 180 MG/ML 10 ML VIAL. ONE; +methylPREDNISolone ACETATE 40 MG/ML VIAL. ONE; +methylPREDNISolone ACETATE 80 MG/ML VIAL. ONE
--- NOTE | 2020-04-08 14:09 | PDOC ---
Progress Note - Pain Clinic Date of Service: DOS: DATE: 04/08/20 TIME: 14:05 Diagnosis: Dx: Lumbar radiculopathy with lumbar degenerative disc disease and lumbar spinal stenosis Myofascial pain Bilateral sacroiliitis History or Present Illness: HPI: 80-year-old female returns for follow-up status post bilateral sacroiliac joint injections as well as previous lumbar epidural steroid injections. Patient reports he did very well with the epidural injection back in August of this year the bilateral sacroiliac joints were helpful but not to the extent that the epidural was. Patient ports the pain is now across the low back rating to the right lower extremity mostly in the posterior gluteus posterior thigh posterior calf at times as well. Patient reports no loss of motor function but significant tenderness with walking standing changing positions patient describes the pain as aching pain that sharp and dull and shooting in the right leg. Patient reports is a 10 on scale 10 is worse over the past week 7-8 on average 3-4 its least is a 7 today. Reports he still sleeping well at night does not disturb her from sleep mostly noticeable when standing and walking better with sitting as well as lying down. Patient reports no new motor or sensory deficits no bowel or bladder incontinence or other complaints. Physical Exam: VS: Blood pressure is 124/73 pulse 77 respirations 18 temperature 90.2 F height is 5 feet 5 inches weight is 150 pounds PE: PHYSICAL EXAMINATION: GENERAL: The patient is awake, alert, oriented, appropriate, very pleasant demeanor HEENT: Shows normocephalic, atraumatic. Extraocular movements are intact and symmetrical. Oral cavity: Mucous membranes moist and pink. NECK: Shows anterior throat supple without palpable lymphadenopathy noted. Swallow reflex symmetrical. CHEST: Shows normal on inspection. Breath sounds clear bilaterally. HEART: Shows S1, S2 clear. No murmurs auscultated. ABDOMEN: Soft, nontender, nondistended, obese. No palpable organomegaly is n oted. BACK: Shows spine grossly in the midline. Normal-appearing cervical lordotic curvature. There is slightly increased thoracic kyphosis, some minor flattening of the lumbar lordotic curvature. Lumbar paraspinous muscles show symmetrical on inspection, on palpation shows some moderate tenderness diffusely throughout the upper, middle and lower distribution of the paraspinous muscles bilaterally and also into the lower thoracic paraspinous musculature, firm and tender, but without specific trigger points, without radiation of pain. The patient has good rotational motion of the lumbar spine, both laterally as well as extension and flexion without significant difficulty. No tenderness over the spinous processes, or sacrum , the sacroiliac regions have mild tenderness in the posterior superior iliac spine and the sacroiliac joints himself but only mild with palpation compared to previous exam. EXTREMITIES: Lower extremities show deep tendon reflexes 1+ in the patellar and tendo calcaneus tendons. Motor exam is 5 on a scale of 5 with right dorsiflexion, extension, quadriceps and hamstring flexion and 5/5 on the left. Peripheral pulses are 1+ posterior tibial. No peripheral edema is noted bilaterally. Lower extremities are warm and dry to touch, equal in color and appearance. SKIN: Shows warm and dry, good turgor. No edema. No sores, rashes or bruising throughout. Procedure: Procedure: Procedure discussed with patient. Patient chart was reviewed as her current medication regimen updated current review of systems updated today as well. We will proceed with a lumbar epidural steroid injection as the first in the series with fluoroscopic guidance. Risks were discussed including but not limited to: Bleeding, infection, possibility of epidural hematoma and subsequent neurological compromise, dural puncture, headaches, spinal cord and/or nerve dam age, side effects of steroid medication, and poor results regarding pain control. Patient understands wished to proceed. Patient will return to the clinic in approximate 2 weeks for follow-up, was counseled as to return appointment activity level and side effects to be aware of. Medication Injected: Med Injected: Procedure is lumbar epidural steroid injection under local anesthetic using sterile prep and drape at the L5-S1 level using C-arm fluoroscopic guidance in both AP and lateral views medications injected is 120 mg Depo-Medrol + 10 mL preservative-free normal saline and 2 mL contrast- condition at discharge is stable patient tolerated procedure well had no complications. Condition at Discharge: Condition at Discharge: Condition at discharge stable, patient tolerated procedure well and had no complications. ISAAC MACIAS MD Apr 08, 2020 14:09
== END | disposition home or self-care (01) ==
LOC: PNCL 12:52
PROVIDERS: ATTEND Anesthesiology
DX: M51.16 Intervertebral disc disorders with radiculopathy, lumbar region (principal); M48.061 Spinal stenosis, lumbar region without neurogenic claudication; M79.18 Myalgia, other site; M46.1 Sacroiliitis, not elsewhere classified; Z90.710 Acquired absence of both cervix and uterus; Z98.890 Other specified postprocedural states; Z79.899 Other long term (current) drug therapy
CPT/HCPCS: 62323; J1030; J1040; Q9965

== ENCOUNTER 2020-07-04 18:42 | Emergency (ER) | payer MEDICARE, OTHER ==
[~2020-07-04] VITALS: Ht 160 cm; Wt 61.4 kg
[~2020-07-04 18:42] MED LIST changes: -IOHEXOL 180 MG/ML 10 ML VIAL. ONE; -POLY17PO28 PO; +POLY17PO52 PO; +VITA-47 PO; -VITA400C6 PO; -methylPREDNISolone ACETATE 40 MG/ML VIAL. ONE; -methylPREDNISolone ACETATE 80 MG/ML VIAL. ONE
[2020-07-04 19:29] LABS: BASO % 0 % (0-3); EOS % 0 % (0-3); HEMATOCRIT 40.1 % (36.0-47.0); HEMOGLOBIN 13.7 g/dL (12.0-15.5); LYMPH # 0.5 x10^3/uL (1.0-4.8); LYMPH % 12 % (24-48); MEAN CORPUSCULAR HEMOGLOBIN 34 pg (25-35); MEAN CORPUSCULAR HGB CONC 34 g/dL (31-37); MEAN CORPUSCULAR VOLUME 100 fL (79-100); MONO # 0.2 x10^3/uL (0.0-1.1); MONO % 6 % (0-9); NEUT # 3.2 x10^3/uL (1.8-7.7); NEUT % 82 % (31-73); PLATELET COUNT 168 x10^3/uL (140-400); RED BLOOD COUNT 4.02 x10^6/uL (3.50-5.40); RED CELL DISTRIBUTION WIDTH 14.2 % (11.5-14.5); WHITE BLOOD COUNT 3.9 x10^3/uL (4.0-11.0)
[2020-07-04] MEDS ORDERED: IV NORMAL SALINE 1000ML BAG 1,000 ML IV ONE (19:30)
[2020-07-04] MEDS ORDERED: ONDANSETRON PF 4 MG/2 ML VIAL. IVP ONE (19:30)
[2020-07-04] MEDS ORDERED: FAMOTIDINE 20 MG/2 ML VIAL IVP ONE (19:30)
[2020-07-04 19:39] LABS: CALCIUM 9.1 mg/dL (8.5-10.1); CREATININE 0.7 mg/dL (0.6-1.0); GFR 80.7; POTASSIUM 4.4 mmol/L (3.5-5.1)
[2020-07-04 19:45] LABS: ALBUMIN 3.9 g/dL (3.4-5.0); ALBUMIN/GLOBULIN RATIO 1.4 (1.0-1.7); TOTAL PROTEIN 6.7 g/dL (6.4-8.2)
[2020-07-04 20:54] LABS: BILIRUBIN,URINE NEGATIVE (NEG); CLARITY,URINE CLEAR; COLOR,URINE YELLOW; NITRITE,URINE NEGATIVE (NEG); PROTEIN,URINE 30 mg/dL (NEG-TRACE); UROBILINOGEN,URINE 0.2 mg/dL (0.2 mg/dL)
[2020-07-04 21:00] LABS: BARBITURATES NEG (NEG); BENZODIAZEPINES NEG (NEG); CANNABINOIDS NEG (NEG); COCAINE NEG (NEG); METHADONE NEG (NEG); OPIATES NEG (NEG); PHENCYCLIDINE NEG (NEG)
[2020-07-04 21:01] LABS: AMPHETAMINE/METHAMPHETAMINE NEG (NEG)
[2020-07-04 21:05] LABS: BACTERIA,URINE 0 /HPF (0-FEW)
--- NOTE | 2020-07-04 21:16 | PHYS DOC ---
Past Medical History Past Medical History: Diabetes-Type II Additional Past Medical Histor: polycythemia, reports increased RBC's, following with Dr. Campoverde. SBO 04/2019 Past Surgical History: Appendectomy, Hysterectomy, Other Additional Past Surgical Histo: bladder repair, hernia repair Smoking Status: Never Smoker Alcohol Use: None Drug Use: None General Adult EDM: Chief Complaint: NAUSEA/VOMITING/DIARRHA HPI: HPI: Patient is a 80 year old female with history of diabetes type 2, low white count, high red blood cell count, who presents to the ED today complaining of nausea and vomiting that began this morning. Patient denies any abdominal pain. Denies any chest pain or shortness of breath. She states she already got her first Covid vaccine roughly 2 weeks ago. She also states she was started on tramadol yesterday for scoliosis and hip pain. She states she had a normal bowel movement yesterday as well as today. Review of Systems: Review of Systems: Constitutional: Denies fever or chills. [] Eyes: Denies change in visual acuity. [] HENT: Denies nasal congestion or sore throat. [] Respiratory: Denies cough or shortness of breath. [] Cardiovascular: Denies chest pain or edema. [] GI: Reports nausea and vomiting. Denies abdominal pain, bloody stools or diarrhea. [] : Denies dysuria. [] Musculoskeletal: Denies back pain or joint pain. [] Integument: Denies rash. [] Neurologic: Denies headache, focal weakness or sensory changes. [] Psychiatric: Denies depression or anxiety. [] Heart Score: C/O Chest Pain: N/A Risk Factors: Risk Factors: DM, Current or recent (<one month) smoker, HTN, HLP, family history of CAD, obesity. Risk Scores: Score 0 - 3: 2.5% MACE over next 6 weeks - Discharge Home Score 4 - 6: 20.3% MACE over next 6 weeks - Admit for Clinical Observation Score 7 - 10: 72.7% MACE over next 6 weeks - Early Invasive Strategies Current Medications: Current Medications Medications (Trade) Dose Ordered Sig/Km Start Time Stop Time Status Last Admin Dose Admin Famotidine (Pepcid Vial) 20 mg 1X ONCE 07/04/20 19:30 07/04/20 19:31 DC 07/04/20 19:40 20 MG Ondansetron HCl (Zofran) 4 mg 1X ONCE 07/04/20 19:30 07/04/20 19:31 DC 07/04/20 19:40 4 MG Sodium Chloride 1,000 ml @ 1,000 mls/hr 1X ONCE 07/04/20 19:30 07/04/20 20:29 DC 07/04/20 19:40 1,000 MLS/HR Allergies: Allergies: Allergies Coded Allergies Type Severity Reaction Last Updated Verified No Known Drug Allergies 08/23/19 No Physical Exam: PE: Constitutional: Well developed, well nourished, no acute distress, non-toxic appearance. [] HENT: Normocephalic, atraumatic, bilateral external ears normal, oropharynx moist, no oral exudates, nose normal. [] Eyes: PERRLA, EOMI, conjunctiva normal, no discharge. [] Neck: Normal range of motion, no tenderness, supple, no stridor. [] Cardiovascular:Heart rate regular rhythm, no murmur [] Lungs & Thorax: Bilateral breath sounds clear to auscultation [] Abdomen: Bowel sounds normal, soft, no tenderness, no masses, no pulsatile masses. [] Skin: Warm, dry, no erythema, no rash. [] Back: No tenderness, no CVA tenderness. [] Extremities: No tenderness, no cyanosis, no clubbing, ROM intact, no edema. [] Neurologic: Alert and oriented X 3, normal motor function, normal sensory function, no focal deficits noted. [] Psychologic: Affect normal, judgement normal, mood normal. [] Current Patient Data: Labs: Laboratory Tests Test 07/04/20 19:20 07/04/20 20:40 White Blood Count 3.9 x10^3/uL (4.0-11.0) L Red Blood Count 4.02 x10^6/uL (3.50-5.40) Hemoglobin 13.7 g/dL (12.0-15.5) Hematocrit 40.1 % (36.0-47.0) Mean Corpuscular Volume 100 fL (79-100) Mean Corpuscular Hemoglobin 34 pg (25-35) Mean Corpuscular Hemoglobin Concent 34 g/dL (31-37) Red Cell Distribution Width 14.2 % (11.5-14.5) Platelet Count 168 x10^3/uL (140-400) Neutrophils (%) (Auto) 82 % (31-73) H Lymphocytes (%) (Auto) 12 % (24-48) L Monocytes (%) (Auto) 6 % (0-9) Eosinophils (%) (Auto) 0 % (0-3) Basophils (%) (Auto) 0 % (0-3) Neutrophils # (Auto) 3.2 x10^3/uL (1.8-7.7) Lymphocytes # (Auto) 0.5 x10^3/uL (1.0-4.8) L Monocytes # (Auto) 0.2 x10^3/uL (0.0-1.1) Eosinophils # (Auto) 0.0 x10^3/uL (0.0-0.7) Basophils # (Auto) 0.0 x10^3/uL (0.0-0.2) Sodium Level 136 mmol/L (136-145) Potassium Level 4.4 mmol/L (3.5-5.1) Chloride Level 102 mmol/L (98-107) Carbon Dioxide Level 27 mmol/L (21-32) Anion Gap 7 (6-14) Blood Urea Nitrogen 20 mg/dL (7-20) Creatinine 0.7 mg/dL (0.6-1.0) Estimated GFR (Cockcroft-Gault) 80.7 BUN/Creatinine Ratio 29 (6-20) H Glucose Level 193 mg/dL (70-99) H Calcium Level 9.1 mg/dL (8.5-10.1) Total Bilirubin 1.0 mg/dL (0.2-1.0) Aspartate Amino Transferase (AST) 20 U/L (15-37) Alanine Aminotransferase (ALT) 29 U/L (14-59) Alkaline Phosphatase 82 U/L (46-116) Total Protein 6.7 g/dL (6.4-8.2) Albumin 3.9 g/dL (3.4-5.0) Albumin/Globulin Ratio 1.4 (1.0-1.7) Lipase 62 U/L (73-393) L Ethyl Alcohol Level < 10 mg/dL (0-10) Urine Collection Type Unknown Urine Color Yellow Urine Clarity Clear Urine pH 6.0 (<5.0-8.0) Urine Specific [place] 1.020 (1.000-1.030) Urine Protein 30 mg/dL (NEG-TRACE) Urine Glucose (UA) Negative mg/dL (NEG) Urine Ketones (Stick) >=80 mg/dL (NEG) Urine Blood Negative (NEG) Urine Nitrite Negative (NEG) Urine Bilirubin Negative (NEG) Urine Urobilinogen Dipstick 0.2 mg/dL (0.2 mg/dL) Urine Leukocyte Esterase Trace (NEG) Urine RBC 1-2 /HPF (0-2) Urine WBC 5-10 /HPF (0-4) Urine Squamous Epithelial Cells Occ /LPF Urine Bacteria 0 /HPF (0-FEW) Urine Opiates Screen Neg (NEG) Urine Methadone Screen Neg (NEG) Urine Barbiturates Neg (NEG) Urine Phencyclidine Screen Neg (NEG) Urine Amphetamine/Methamphetamine Neg (NEG) Urine Benzodiazepines Screen Neg (NEG) Urine Cocaine Screen Neg (NEG) Urine Cannabinoids Screen Neg (NEG) Urine Ethyl Alcohol Neg (NEG) Laboratory Tests 07/04/20 19:20 Laboratory Tests 07/04/20 19:20 Vital Signs: Vital Signs Date Time Temp Pulse Resp B/P (MAP) Pulse Ox O2 Delivery O2 Flow Rate FiO2 07/04/20 19:05 97.8 78 14 155/69 (97) 100 Room Air 97.8 EKG: EKG: [] Radiology/Procedures: Radiology/Procedures: [] Course & Med Decision Making: Course & Med Decision Making Pertinent Labs and Imaging studies reviewed. (See chart for details) This is a 80-year-old female patient presenting to the ED today with complaints of nausea, vomiting, symptoms began today. CBC with a WBC of 3.9, patient has history of low white count. CMP with no acute findings. Glucose around 193, history of diabetes. Anion gap is normal. Urine noted for dehydration. Patient was given IV fluids Zofran and Pepcid in the ED. Feeling better. Symptoms are likely viral. Discharge to home. Follow-up with PCP next week Rx for Zofran provided Elis Disclaimer: Elis Disclaimer: This electronic medical record was generated, in whole or in part, using a voice recognition dictation system. Departure Departure Impression: Primary Impression: Nausea and vomiting Qualified Codes: R11.2 - Nausea with vomiting, unspecified Additional Impression: Dehydration Disposition: 01 DC HOME SELF CARE/HOMELESS Condition: STABLE Referrals: MISHA AVALOS MD (PCP) follow up with your doctor next week Patient Instructions: Dehydration, Adult, Nausea and Vomiting, [id number] Additional Instructions: You were evaluated in the emergency room for nausea and vomiting. Your work-up was negative for any acute findings. Please push fluids, maintain good at home. Take Zofran as needed. Ensure you take tramadol with food. Scripts Ondansetron (ONDANSETRON ODT) 4 Mg Tab.rapdis 1 TAB PO PRN Q6-8HRS, #16 TAB Prov: SANDIE MENG APRN 07/04/20 SANDIE MENG APRN Jul 04, 2020 21:16
[2020-07-04] MEDS ORDERED: ONDA4TAB12 PO (21:22)
[2020-07-04 21:36] VITALS: BP 139/65
== END 2020-07-04 21:45 | disposition home or self-care (01) ==
LOC: ER 18:42
DX: R11.2 Nausea with vomiting, unspecified (principal); E86.0 Dehydration; E11.9 Type 2 diabetes mellitus without complications; Z90.89 Acquired absence of other organs; Z90.710 Acquired absence of both cervix and uterus; Z98.890 Other specified postprocedural states
CPT/HCPCS: 36415; 80053; 80307; 81001; 83690; 85025; 87086; 96361; 96374; 96375; 99285; G0480; J2405; J3490; J7030

== ENCOUNTER → 2020-09-04 | Outpatient (CLI) | payer MEDICARE, OTHER ==
[~2020-09-04] MED LIST changes: +ONDA4TAB12 PO
--- NOTE | 2020-09-04 14:48 | KCIC ---
MRI of the lumbar spine without contrast 09/04/2020 CLINICAL HISTORY: Chronic low back pain which radiates down the right leg. TECHNIQUE: Unenhanced T1-weighted and T2-weighted sagittal and axial and inversion recovery sagittal images of the lumbar spine were obtained. FINDINGS: Comparison study is dated 01/11/2020. Moderate to severe S-shaped curvature of the thoracolumbar spine is seen. Degenerative signal changes and loss of height are seen involving all of the disks of the lumbar spine. Degenerative signal corado ges are seen within the marrow surrounding these discs. The conus medullaris is normal in position an d signal characteristics. Rounded high signal intensity lesions are seen involving both kidneys which measure 5 mm to 3.5 cm in size and T2-weighted images. These likely represent cysts. No further imag ing evaluation is recommended. At the T12-L1 disc space there is a mild to moderate generalized disc bulge. This is eccentric to the left. Degenerative changes are seen involving the facet joints, left greater than right. There are s mall facet joint effusions bilaterally. These findings when combined result in mild to moderate left greater than right central spinal canal stenosis. Severe left neural foraminal stenosis is seen. The right neural foramen is patent. At the L1-2 disc space there is a moderate generalized disc bulge. Degenerative changes are seen invo lving the facet joints bilaterally. There is mild ligamentum flavum hypertrophy bilaterally. These fi ndings when combined result in moderate central spinal canal stenosis. Mild to moderate left greater than right neural foraminal stenosis is seen. At the L2-3 disc space there is a moderate generalized disc bulge. Degenerative changes are seen invo lving the facet joints bilaterally. There is moderate ligamentum flavum hypertrophy bilaterally. Thes e findings when combined result in severe central spinal canal stenosis. Mild to moderate left greate r than right neural foraminal stenosis is seen. At the L3-4 disc space there is a moderate generalized disc bulge. Degenerative changes are seen invo lving the facet joints bilaterally. There is moderate ligamentum flavum hypertrophy bilaterally. Ther e are small facet joint effusions bilaterally. These findings when combined result in moderate to sev ere central spinal canal stenosis with mild to moderate right greater than left neural foraminal sten osis. At the L4-5 disc space is a moderate generalized disc bulge. Degenerative changes are seen involving the facet joints bilaterally. There is moderate ligamentum flavum hypertrophy bilaterally. These find ings when combined result in severe central spinal canal stenosis. Mild to moderate left neural sherlyn inal stenosis is seen. Severe right neural foraminal stenosis is noted. At the L5-S1 disc space there is a mild to moderate generalized disc bulge. This is eccentric to the left. Degenerative changes are seen involving the facet joints bilaterally. There are are small facet joint effusions bilaterally. There is mild to moderate ligament flavum hypertrophy bilaterally. Thes e findings when combined do not result in significant central spinal canal stenosis. Moderate to johana re left neural foraminal stenosis is seen. The right neural foramen is patent. Since the previous examination there has been no significant interval change. IMPRESSION: The changes of degenerative disc disease are seen involving the lower thoracic and throug hout the lumbar spine. These findings results in mild to moderate left greater than right central spi nal canal stenosis at T12-L1, moderate central spinal canal stenosis at L1-2, severe central spinal c anal stenosis at L2-3 and L4-5 and moderate to severe central spinal canal stenosis with L3-4. Multil evel neural foraminal stenosis of varying severity is seen as discussed above. Electronically signed by: Edison Amado MD (09/04/2020 2:46 PM) [id number]
== END ==
LOC: KCIC MRI 10:42
PROVIDERS: ATTEND Orthopaedic Surgery
DX: M47.27 Other spondylosis with radiculopathy, lumbosacral region (principal); M51.35 Other intervertebral disc degeneration, thoracolumbar region; M48.05 Spinal stenosis, thoracolumbar region
CPT/HCPCS: 72148

== ENCOUNTER → 2020-09-26 | Outpatient (CLI) | payer MEDICARE, OTHER ==
[~2020-09-26] MED LIST changes: +IOHEXOL 180 MG/ML 10 ML VIAL. ONE; +methylPREDNISolone ACETATE 40 MG/ML VIAL. ONE; +methylPREDNISolone ACETATE 80 MG/ML VIAL. ONE
--- NOTE | 2020-09-26 11:06 | PDOC4 ---
PROCEDURE Procedure Patient was consented for lumbar epidural steroid injection. Risks were dis cussed including but not limited to: Bleeding, infection, possibility of epidural hematoma and subsequent neurological compromise, dural puncture, headaches, spinal cord and/or nerve damage, side effects of steroid medication, and poor results regarding pain control. Patient understands and wished to proceed. Procedure is lumbar epidural steroid injection under local anesthetic using sterile prep and drape at the L5-S1 level using C-arm fluoroscopic guidance in both AP and lateral views medications injected is 120 mg Depo-Medrol +10mL preservative-free normal saline and 2 mL contrast- condition at discharge is stable patient tolerated procedure well had no complications. ISAAC MACIAS MD Sep 26, 2020 11:06
--- NOTE | 2020-09-26 11:06 | PDOC ---
Progress Note - Pain Clinic Date of Service: DOS: DATE: 09/26/20 TIME: 11:03 Diagnosis: Dx: Lumbar radiculopathy with lumbar spinal stenosis and lumbar degenerative disc disease Myofascial pain Bilateral sacroiliitis History or Present Illness: HPI: 80-year-old female returns for follow-up status post lumbar epidural steroid injection as well as bilateral sacroiliac joint injections last seen April 08, 2020. Patient reports he did well after the last injection but not as well as the one prior to that where she had about 75 to 80% improvement with her epidural steroid injections patient reports pain is returning down the low back and right lower extremity patient has some pain in the right hip and has seen her orthopedic surgeon recently who was not concerned about any hip issues but did do a new MRI scan on her back which we discussed with her today showing some fairly significant degenerative disc disease as well as central spinal canal stenosis in the lumbar distributions. Specially on the L4-5 on the right side patient reports right-sided pain low back right leg posterior gluteus lateral thigh anterior thigh medial thigh medial lower leg with walking standing changing positions better with sitting or laying down generally not awaken her from sleep at night patient rates as a 10 on scale 10 is worst over the past week 7 on average in 4 to sleep and is a 7 today patient describes as burning and stabbing and sharp in the low back and right leg. Patient reports no new bowel or bladder incontinence no new motor or sensory deficits. Physical Exam: VS: Blood pressure is 120/63 pulse 76 respiration 16 temperature 90.6 F height is 5 foot 5 inches weight is 130 pounds PE: PHYSICAL EXAMINATION: GENERAL: The patient is awake, alert, oriented, appropriate, very pleasant demeanor HEENT: Shows normocephalic, atraumatic. Extraocular movements are intact and symmetrical. Oral cavity: Mucous membranes moist and pink. NECK: Shows anterior throat supple without palpable lymphadenopathy noted. Swallow reflex symmetrical. CHEST: Shows normal on inspection. Breath sounds are clear bilaterally, no rales or rhonchi auscultated. HEART: Shows S1, S2 clear. No murmurs auscultated. ABDOMEN: Soft, nontender, nondistended. No palpable organomegaly is noted. No rebound or guarding demonstrated. BACK: Shows spine grossly in the midline. Normal-appearing cervical lordotic curvature. There is slightly increased thoracic kyphosis, some minor flattening of the lumbar lordotic curvature. Lumbar paraspinous muscles show symmetrical on inspection, on palpation shows some moderate tenderness diffusely throughout the upper, middle and lower distribution of the paraspinous muscles without specific trigger points, without radiation of pain. The patient has good rotational motion of the lumbar spine, both laterally as well as extension and flexion without significant difficulty. Only very mild tenderness over the sacroiliac regions bilaterally without radiation. EXTREMITIES: Lower extremities show deep tendon reflexes 1+ in the patellar and tendo calcaneus tendons. Motor exam is 5 on a scale of 5 with right dorsiflexion, extension, quadriceps and hamstring flexion and 5/5 on the left. Peripheral pulses are 1+ posterior tibial. No peripheral edema is noted bilaterally. Lower extremities are warm and dry to touch, equal in color and appearance. SKIN: Shows warm and dry, good turgor. No edema. No sores, rashes or bruising throughout. Procedure: Procedure: Options were discussed with the patient. Patient chart was reviewed as her current medication regimen updated current review of systems updated today as well. We will proceed with a lumbar epidural steroid injection states the first in the series with fluoroscopic guidance. Risks were discussed including but not limited to: Bleeding, infection, possibility of epidural hematoma and subseq uent neurological compromise, dural puncture, headaches, spinal cord and/or nerve damage, side effects of steroid medication, and poor results regarding pain control. Patient understands and wished to proceed. Patient will return to clinic in approximate 2 weeks for follow-up, was counseled as return appointment activity level and side effects to be aware of. Medication Injected: Med Injected: Procedure is lumbar epidural steroid injection under local anesthetic using ster ile prep and drape at the L5-S1 level using C-arm fluoroscopic guidance in both AP and lateral views medications injected is 120 mg Depo-Medrol +10mL preservative-free normal saline and 2 mL contrast- condition at discharge is stable patient tolerated procedure well had no complications. Condition at Discharge: Condition at Discharge: Condition at discharge is stable, patient already procedure well and had no complications. ISAAC MACIAS MD Sep 26, 2020 11:06
== END ==
LOC: PNCL 10:18
PROVIDERS: ATTEND Anesthesiology
DX: M48.07 Spinal stenosis, lumbosacral region (principal); M51.17 Intervertebral disc disorders with radiculopathy, lumbosacral region; M79.18 Myalgia, other site; M46.1 Sacroiliitis, not elsewhere classified; M54.5 Low back pain
CPT/HCPCS: 62323; J1030; J1040; Q9965

== ENCOUNTER → 2020-11-11 | Outpatient (CLI) | payer MEDICARE, OTHER ==
--- NOTE | 2020-11-11 10:58 | PDOC ---
Progress Note - Pain Clinic Date of Service: DOS: DATE: 11/11/20 TIME: 10:50 Diagnosis: Dx: Lumbar radiculopathy with lumbar spinal stenosis lumbar degenerative disc disease Myofascial pain Bilateral sacroiliitis History or Present Illness: HPI: 80-year-old female returns for follow-up status post lumbar epidural steroid injection x2 most recently September 26, 2020. Patient was about 50% improvement al though has new finding of weakness in the right leg and hip especially now which is not a previous finding. Patient reports the pain is a 9 on a scale of 10 at its worst over the past week 4-5 on average to its least initially doing much better but the pain returning now and again new finding of some weakness in the right leg where she feels a little unstable although she has not fallen or stumbled she feels very apprehensive is been holding onto her on her right side when walking. Patient reports is aching and sharp cramping and stabbing in the right leg also in the low back on the right side patient reports initially doing much better with walking doing household activities try with greater ease and comfort as well. Patient reports he is sleeping well at night does not generally awaken her from sleep at night. Physical Exam: VS: Blood pressure 130/67 pulse 80 respirations 16 Fahrenheit weight 135 pounds PE: PHYSICAL EXAMINATION: GENERAL: The patient is awake, alert, oriented, appropriate, very pleasant in demeanor, patient accompanied by her . HEENT: Shows normocephalic, atraumatic. Extraocular movements are intact and symmetrical. NECK: Shows anterior throat supple without palpable lymphadenopathy noted. Swallow reflex symmetrical. CHEST: Shows normal on inspection. Breath sounds are clear bilaterally. HEART: Shows S1, S2 clear. No murmurs auscultated. ABDOMEN: Soft, nontender, nondistended. No palpable organomegaly is noted. No rebound or guarding demonstrated. BACK: Shows spine grossly in the midline. Normal-appearing cervical lordotic curvature. There is slightly increased thoracic kyphosis, some minor flattening of the lumbar lordotic curvature. Lumbar paraspinous muscles show symmetrical on inspection, on palpation shows some moderate tenderness diffusely throughout the upper, middle and lower distribution of the paraspinous muscles, but without specific trigger points, without radiation of pain. The patient has good rotat ional motion of the lumbar spine, both laterally as well as extension and flexion without significant difficulty. Moderate tenderness over the posterior superior iliac spine on the right. No radiation demonstrated. EXTREMITIES: Lower extremities show deep tendon reflexes 1+ in the patellar and tendo calcaneus tendons. Motor exam is 5 on a scale of 5 with right dorsiflexion, extension, quadriceps and hamstring flexion and 5/5 on the left. Peripheral pulses are 1 posterior tibial. No peripheral edema is noted bilaterally. Lower extremities are warm and dry. SKIN: Shows warm and dry, good turgor. No edema. No sores, rashes or bruising throughout. Procedure: Procedure: Options discussed with the patient. Patient chart reviews her current medication regimen updated current review of systems updated today as well. We will proceed with a lumbar epidural steroid injection today with fluoroscopic guidance. Risks were discussed including but not limited to: Bleeding, infection, possibility of epidural hematoma and subsequent neurological compromise, dural puncture, headaches, spinal cord and/or nerve damage, side effects of steroid medication, and poor results regarding pain control. Patient understands and wished to proceed. Patient return to clinic in approximate 2 weeks for follow-up, was counseled as return appointment activity level and side effects to be aware of. Medication Injected: Med Injected: Procedure is lumbar epidural steroid injection under local anesthetic using sterile prep and drape at the L5-S1 level using C-arm fluoroscopic guidance in both AP and lateral views medications injected is 120 mg Depo-Medrol +10mL preservative-free normal saline and 2 mL contrast- condition at discharge is stable patient tolerated procedure well had no complications. Condition at Discharge: Condition at Discharge: Condition at discharge stable, patient tolerated procedure well and had no complications. ISAAC MACIAS MD Nov 11, 2020 10:58
--- NOTE | 2020-11-11 11:02 | PDOC ---
Progress Note - Pain Clinic Date of Service: DOS: DATE: 11/11/20 TIME: 10:59 Diagnosis: Dx: Lumbar radiculopathy with lumbar spinal stenosis and lumbar degenerative disc disease Myofascial pain Bilateral sacroiliitis History or Present Illness: HPI: 40-year-old female returns for follow-up status post lumbar epidural steroid ejections x2. Patient last seen September 26, 2020. Patient reports that the pain is returning but was much better initially about 75% now about 50% with new finding of right lower extremity weakness on the right which he generally has not had in the past. Patient reports is a 9 on scale 10 is worse over the past week 4-5 on average to its least is a 4 today. Patient reports with walking and standing she feels unstable and has not fallen but feels very unstable on the right leg she been holding onto her with her right arm when walking with him. Patient describes pain as aching and sharp in the back cramping and stabbing in the lower extremity as well. Patient reports no loss of motor function no bowel or bladder incontinence. Patient reports initially she was doing better with walking standing changing positions sleeping better at night generally is not awaken her from sleep at this time. Physical Exam: VS: Blood pressure is 130/67 pulse 80 respirations 16 temperature 98.2 F weight is 135 pounds PE: PHYSICAL EXAMINATION: GENERAL: The patient is awake, alert, oriented, appropriate, very pleasant in demeanor, patient accompanied by her . HEENT: Shows normocephalic, atraumatic. Extraocular movements are intact and symmetrical. NECK: Shows anterior throat supple without palpable lymphadenopathy noted. Swallow reflex symmetrical. CHEST: Shows normal on inspection. Breath sounds are clear bilaterally, no rales or. HEART: Shows S1, S2 clear. No murmurs auscultated. ABDOMEN: Soft, nontender, nondistended, obese. BACK: Shows spine grossly in the midline. Normal-appearing cervical lordotic curvature. There is slightly increased thoracic kyphosis, some minor flattening of the lumbar lordotic curvature. Lumbar paraspinous muscles show symmetrical on inspection, on palpation shows some moderate tenderness diffusely throughout the upper, middle and lower distribution of the paraspinous muscles, but without specific trigger points, without radiation of pain. The patient has good rotational motion of the lumbar spine, both laterally as well as extension and flexion without significant difficulty. Moderate tenderness over the right posterior superior iliac spine. No radiation is demonstrated EXTREMITIES: Lower extremities show deep tendon reflexes 1+ in the patellar and tendo calcaneus tendons. Motor exam is 5 on a scale of 5 with right dorsiflexion, extension, quadriceps and hamstring flexion and 5/5 on the left. Peripheral pulses are 1 posterior tibial. No peripheral edema is noted bilaterally. Lower extremities are warm and dry. SKIN: Shows warm and dry, good turgor. No edema. No sores, rashes or bruising throughout. Procedure: Procedure: Options were discussed with the patient. Patient chart reviews her current medication regimen updated current review of systems updated today as well. We will proceed with a lumbar epidural steroid injection stable fluoroscopic guidance. Risks were discussed including but not limited to: Bleeding, infection, possibility of epidural hematoma and subsequent neurological compromise, dural puncture, headaches, spinal cord and/or nerve damage, side effects of steroid medication, and poor results regarding pain control. Patient understands and wished to proceed. Patient will return to the clinic in approximate 2 weeks for follow-up, was counseled as return appointment activity level and side effects to be aware of. Medication Injected: Med Injected: Procedure is lumbar epidural steroid injection under local anesthetic using sterile prep and drape at the L5-S1 level using C-arm fluoroscopic guidance in both AP and lateral views medications injected is 120 mg Depo-Medrol +10mL preservative-free normal saline and 2 mL contrast- condition at discharge is stable patient tolerated procedure well had no complications. Condition at Discharge: Condition at Discharge: Condition at discharge stable, patient alert the procedure well and had no complications. ISAAC MACIAS MD Nov 11, 2020 11:02
--- NOTE | 2020-11-11 11:03 | PDOC4 ---
Procedure Note: Procedure Note: Patient was consented for lumbar epidural steroid injection. Risks were discussed including but not limited to: Bleeding, infection, possibility of epidural hematoma and subsequent neurological compromise, dural puncture, headaches, spinal cord and/or nerve damage, side effects of steroid medication, and poor results regarding pain control. Patient understands and wished to proceed. Procedure is lumbar epidural steroid injection under local anesthetic using sterile prep and drape at the L5-S1 level using C-arm fluoroscopic guidance in both AP and lateral views medications injected is 120 mg Depo-Medrol +10mL preservative-free normal saline and 2 mL contrast- condition at discharge is stable patient tolerated procedure well had no complications. ISAAC MACIAS MD Nov 11, 2020 11:03
== END | disposition home or self-care (01) ==
LOC: PNCL 10:04
PROVIDERS: ATTEND Anesthesiology
DX: M51.16 Intervertebral disc disorders with radiculopathy, lumbar region (principal); M48.061 Spinal stenosis, lumbar region without neurogenic claudication; M79.18 Myalgia, other site; M46.1 Sacroiliitis, not elsewhere classified; Z90.710 Acquired absence of both cervix and uterus; Z98.890 Other specified postprocedural states; Z79.899 Other long term (current) drug therapy
CPT/HCPCS: 62323; J1030; J1040; Q9965

== ENCOUNTER 2020-11-28 09:07 | Emergency (ER) | payer MEDICARE, OTHER ==
[~2020-11-28] VITALS: Ht 165.1 cm; Wt 56.8 kg
[~2020-11-28 09:07] MED LIST changes: -IOHEXOL 180 MG/ML 10 ML VIAL. ONE; -methylPREDNISolone ACETATE 40 MG/ML VIAL. ONE; -methylPREDNISolone ACETATE 80 MG/ML VIAL. ONE
[2020-11-28] MEDS ORDERED: IV NORMAL SALINE 1000ML BAG 1,000 ML IV ONE (09:45)
[2020-11-28] MEDS ORDERED: ONDANSETRON PF 4 MG/2 ML VIAL. IVP ONE (09:45)
--- NOTE | 2020-11-28 09:55 | PHYS DOC ---
Past Medical History Past Medical History: Diabetes-Type II Additional Past Medical Histor: polycythemia, SCOLOSIS, BACK PAIN Past Surgical History: Appendectomy, Hysterectomy, Other Additional Past Surgical Histo: bladder repair, hernia repair, HIP Smoking Status: Never Smoker Alcohol Use: None Drug Use: None General Adult EDM: Chief Complaint: WEAKNESS/GENERALIZED HPI: HPI: Patient is a 80 year old female who presents feeling unwell in the setting of being Covid positive. Reports cough, myalgias, nausea, generalized weakness. States that she cannot go on like this at home. She feels somewhat unsafe. Symptoms started 8 days ago. Tested positive 7 days ago. Her was also positive and was admitted and then discharged from the hospital. She was vaccinated in May of this year. Denies chest pain. Denies significant shortness of breath. She was started on an abx by her PCP yesterday. She is unsure of the name. Review of Systems: Review of Systems: Constitutional: + fever and chills. [] Eyes: Denies change in visual acuity. [] HENT: + nasal congestion and sore throat. [] Respiratory: + cough. No shortness of breath. [] Cardiovascular: Denies chest pain or edema. [] GI: + Nausea. Denies abdominal pain, vomiting, bloody stools or diarrhea. [] : Denies dysuria. [] Musculoskeletal: + myalgias. Denies back pain or joint pain. [] Integument: Denies rash. [] Neurologic: +headache. No focal weakness or sensory changes. [] Endocrine: Denies polyuria or polydipsia. [] Lymphatic: Denies swollen glands. [] Psychiatric: Denies depression or anxiety. [] Heart Score: C/O Chest Pain: No Risk Factors: Risk Factors: DM, Current or recent (<one month) smoker, HTN, HLP, family history of CAD, obesity. Risk Scores: Score 0 - 3: 2.5% MACE over next 6 weeks - Discharge Home Score 4 - 6: 20.3% MACE over next 6 weeks - Admit for Clinical Observation Score 7 - 10: 72.7% MACE over next 6 weeks - Early Invasive Strategies Current Medications: Current Medications Medications (Trade) Dose Ordered Sig/Km Start Time Stop Time Status Last Admin Dose Admin Ondansetron HCl (Zofran) 4 mg 1X ONCE 11/28/20 09:45 11/28/20 09:46 UNV Sodium Chloride 1,000 ml @ 1,000 mls/hr 1X ONCE 11/28/20 09:45 11/28/20 10:44 UNV Allergies: Allergies: Allergies Coded Allergies Type Severity Reaction Last Updated Verified No Known Drug Allergies 08/23/19 No Physical Exam: PE: Constitutional: Ill appearing but non-toxic. Occasionally dry heaving after coughs. [] HENT: Normocephalic, atraumatic, bilateral external ears normal, oropharynx moist, no oral exudates, nose normal. [] Eyes: PERRLA, EOMI, conjunctiva normal, no discharge. [] Neck: Normal range of motion, no tenderness, supple, no stridor. [] Cardiovascular:Heart rate regular rhythm, no murmur [] Lungs & Thorax: Coughing frequently. Crackles in bases. Normal work of breath. [] Abdomen: Bowel sounds normal, soft, no tenderness, no masses, no pulsatile masses. [] Skin: Warm, dry, no erythema, no rash. [] Back: No tenderness, no CVA tenderness. [] Extremities: No tenderness, no cyanosis, no clubbing, ROM intact, no edema. [] Neurologic: Alert and oriented X 3, normal motor function, normal sensory function, no focal deficits noted. [] Psychologic: Affect normal, judgement normal, mood normal. [] Current Patient Data: Vital Signs: Vital Signs Date Time Temp Pulse Resp B/P (MAP) Pulse Ox O2 Delivery O2 Flow Rate FiO2 11/28/20 09:32 98.8 96 38 146/81 (89) 96 Room Air 98.8 EKG: EKG: Sinus rhythm. Rate 96. ST depressions inferiorly. No ST elevation. [] Radiology/Procedures: Radiology/Procedures: CXR[] Impression: [facility] [address] [place] [address] IMAGING REPORT Signed PATIENT: CIERA MORRIS MACCOUNT: [id number] : 1940 LOCATION: ER AGE: 80 SEX: F EXAM STATUS: REG ER ORD. PHYSICIAN: JOVANA OCASIO MD REASON: covid + PROCEDURE: CHEST AP ONLY AP chest. HISTORY: Covid positive AP view was taken of the chest. Heart is normal in size. There is no pleural effusion. There is mild elevation the right diaphragm. There is arthritis and rotator cuff degeneration both shoulders. There are no acute infiltrates. IMPRESSION: 1. No acute infiltrates. Electronically signed by: Chente Santillan MD (11/28/2020 10:18 AM) [id number] DICTATED and SIGNED BY: CHENTE SANTILLAN MD DATE: 11/28/20 [id number] 0 Course & Med Decision Making: Course & Med Decision Making Pertinent Labs and Imaging studies reviewed. (See chart for details) Patient is 80-year-old female who is Covid positive who presents with ongoing cough, fevers, myalgias, and generalized weakness. She is concerned that she is no longer safe at home given her generalized weakness. She lives at home with her . On arrival vital signs are reassuring. Pulse ox in the mid to high 90s. Normal work of breathing. He does appear uncomfortable, slightly dry and is retching. Will treat with Zofran and IV fluids. EKG shows some inferior ST depressions, but she has no chest pain to suggest ACS. Will collect a single troponin. Check basic labs and chest x-ray. Will road test in her room, if she is unable to ambulate safely she will not be safe to return home to independent living. 0954 troponin negative CBC with mild leukopenia c/w viral process. CMP largely unremarkable. CXR clear. Continues to sat well on RA. She feels safe to discharge home. Return precautions discussed. 1043 Elis Disclaimer: Elis Disclaimer: This electronic medical record was generated, in whole or in part, using a voice recognition dictation system. Departure Departure Impression: Primary Impression: COVID-19 Disposition: 01 HOME / SELF CARE / HOMELESS Condition: STABLE Referrals: MISHA AVALOS MD (PCP) Additional Instructions: Your labs, chest x-ray, and vital signs were all reassuring. This will continue to take time to get better. There is a chance that you may become worse before you improve. If you have shortness of breath or feel unsafe caring for yourself at home please return to the emergency department. Otherwise please continue following up with your primary care doctor. Scripts Ondansetron Hcl (ZOFRAN) 4 Mg Tablet 1 TAB PO PRN Q6-8HRS for nausea, #12 TAB Prov: JOVANA OCASIO MD 11/28/20 JOVANA OCASIO MD Nov 28, 2020 09:55
[2020-11-28 10:11] LABS: BASO % 0 % (0-3); EOS % 0 % (0-3); LYMPH # 0.4 x10^3/uL (1.0-4.8); LYMPH % 12 % (24-48); MEAN CORPUSCULAR HEMOGLOBIN 34 pg (25-35); MEAN CORPUSCULAR HGB CONC 34 g/dL (31-37); MEAN CORPUSCULAR VOLUME 100 fL (79-100); MONO # 0.3 x10^3/uL (0.0-1.1); MONO % 9 % (0-9); NEUT # 2.7 x10^3/uL (1.8-7.7); NEUT % 79 % (31-73); PLATELET COUNT 123 x10^3/uL (140-400); RED CELL DISTRIBUTION WIDTH 14.1 % (11.5-14.5); WHITE BLOOD COUNT 3.4 x10^3/uL (4.0-11.0)
--- NOTE | 2020-11-28 10:20 | RAD ---
AP chest. HISTORY: Covid positive AP view was taken of the chest. Heart is normal in size. There is no pleural effusion. There is mild elevation the right diaphragm. There is arthritis and rotator cuff degeneration both shoulders. There are no acute infiltrates. IMPRESSION: 1. No acute infiltrates. Electronically signed by: Chente Santillan MD (11/28/2020 10:18 AM) [id number]
[2020-11-28 10:23] LABS: CALCIUM 8.8 mg/dL (8.5-10.1); CREATININE 0.8 mg/dL (0.6-1.0); GFR 69.2; POTASSIUM 4.4 mmol/L (3.5-5.1)
[2020-11-28 10:29] LABS: TOTAL BILIRUBIN 0.6 mg/dL (0.2-1.0); TOTAL PROTEIN 6.1 g/dL (6.4-8.2)
[2020-11-28] MEDS ORDERED: ONDA4TAB7 PO (10:40)
[2020-11-28 11:26] VITALS: BP 122/58
== END 2020-11-28 11:45 | disposition home or self-care (01) ==
LOC: ER 09:07
DX: U07.1 COVID-19 (principal); E11.9 Type 2 diabetes mellitus without complications; Z90.89 Acquired absence of other organs; Z90.710 Acquired absence of both cervix and uterus
CPT/HCPCS: 36415; 71045; 80053; 84484; 85025; 93005; 96361; 96374; 99285; J2405; J7030